=== PATIENT | male | born 1945 | race Caucasian/White ===

== ENCOUNTER 2017-04-27 11:00 | Inpatient (IN) | payer OTHER ==
[2017-04-27 11:08] VITALS: BMI 30.5
--- NOTE | 2017-04-27 11:24 | PDOC ---
History of Present Illness - General History Source: Patient Exam Limitations: No Limitations - History of Present Illness Initial Comments: CHIEF COMPLAINT: 71 y/o afebrile male with PMH HTN c/o SOB on exertion today. HISTORY OF PRESENT ILLNESS: The patient states he plays golf and walks 5 miles a day. Today, while playing golf, he developed SOB while walking to each hole. He states if he got a ride on the cart he was fine. He denies f/c, FERNANDEZ, dizziness, n/v/d, cough, hemoptysis, CP, palpitations, abd pain, back pain, hematuria, dysuria, history of GI bleed. PCP is Dr. Ramirez Vital signs on arrival are notable for pulse of 53. REVIEW OF SYSTEMS: GENERAL/CONSTITUTIONAL: No fever/chills. No weakness. No weight change. HEAD, EYES, EARS, NOSE AND THROAT: No change in vision. No ear pain or discharge. No sore throat. CARDIOVASCULAR: +SOB on exertion. No chest pain or palpitations. RESPIRATORY: No cough, wheezing, or hemoptysis. GASTROINTESTINAL: No abd pain, nausea, vomiting, diarrhea. GENITOURINARY: No dysuria, frequency, or change in urination. MUSCULOSKELETAL: No joint or muscle swelling or pain. No neck or back pain. SKIN: No rash or easy bruising. NEUROLOGIC: No headache, vertigo, loss of consciousness, or loss of sensation. PHYSICAL EXAM: GENERAL: The patient is awake, alert, and fully oriented, in no acute distress. He is very well appearing, in NAD or obvious discomfort. No cyanosis. No diaphoresis. HEAD: Normal with no signs of trauma. ENT: Pupils equal, round and reactive to light, extraocular movements intact, sclera anicteric, conjunctiva clear. Neck supple. LUNGS: Clear to auscultation bilaterally. Normal excursion. No respiratory distress or use of accessory muscles. CV: Rapid rate/irregular rhythm, S1/S2, no MRG. Cap refill < 2 sec. ABDOMEN: Soft, non-distended, non-tender even to deep palpation, no hepatomegaly or splenomegaly, no masses. EXTREMITIES: Normal range of motion, no edema. NEUROLOGICAL: Normal speech, normal gait. CN II-XII grossly intact. PSYCH: Normal mood, normal affect. SKIN: Warm, dry, normal turgor, no rashes or lesions noted. <Wohltman,Molly - Last Filed: 04/27/17 13:41> <Esther Castro - Last Filed: 04/30/17 13:07> - General Chief Complaint: Shortness of Breath Stated Complaint: SOB Time Seen by Provider: 04/27/17 11:17 Past History - Past Medical History Anemia: No Asthma: No Cancer: No Cardiac Disorders: No CVA: No COPD: No CHF: No Dementia: No Diabetes: No GI Disorders: No Disorders: No HTN: Yes Hypercholesterolemia: No Liver Disease: No Seizures: No Thyroid Disease: No - Surgical History Abdominal Surgery: Yes (RIGHT INGUINAL HERNIA) Appendectomy: Yes Cardiac Surgery: No Cholecystectomy: No Lung Surgery: No Neurologic Surgery: No Orthopedic Surgery: No - Psycho/Social/Smoking Cessation Hx Anxiety: No Suicidal Ideation: No Smoking History: Former smoker Have you smoked in the past 12 months: No If you are a former smoker, when did you quit?: 1969 Information on smoking cessation initiated: No Hx Alcohol Use: No Drug/Substance Use Hx: No Substance Use Type: Alcohol Hx Substance Use Treatment: No <Molly Key - Last Filed: 04/27/17 13:41> <Esther Castro - Last Filed: 04/30/17 13:07> - Past Medical History Allergies/Adverse Reactions: Allergies Allergy/AdvReac Type Severity Reaction Status Date / Time No Known Drug Allergies Allergy Verified 04/27/17 11:05 Home Medications: Ambulatory Orders Metoprolol Succinate [Toprol XL -] 100 mg PO DAILY 12/31/14 Triamterene/Hydrochlorothiazid [Triamterene-Hctz 75-50 mg Tab] 1 each PO DAILY 12/31/14 Multivitamins [Multivit ([facility] Form[facility])] 1 tab PO DAILY 01/15/15 *Physical Exam - Vital Signs Last Vital Signs Temp Pulse Resp BP Pulse Ox 98.0 F 53 L 18 146/73 100 04/27/17 11:05 04/27/17 11:05 04/27/17 11:05 04/27/17 11:05 04/27/17 11:05 <Molly Key - Last Filed: 04/27/17 13:41> - Vital Signs Last Vital Signs Temp Pulse Resp BP Pulse Ox 98.2 F 92 H 14 132/74 96 04/30/17 08:05 04/30/17 08:05 04/30/17 08:05 04/30/17 08:05 04/30/17 09:00 <Esther Castro - Last Filed: 04/30/17 13:07> Heart Score/ECG Review - ECG Intrepretation Comment:: Twelve-lead EKG was performed and reviewed by Dr. Castro. There is atrial flutter with variable AV block. The axis is normal. The intervals are normal. There are no ST or T wave abnormalities. Right bundle branch block. Impression: Abnormal twelve-lead EKG Prior EKG from 2015 showed normal sinus rhythm with right BBB. <Molly Key - Last Filed: 04/27/17 13:41> ED Treatment Course - LABORATORY CBC & Chemistry Diagram: 04/27/17 11:43 04/27/17 11:43 <Molly Key - Last Filed: 04/27/17 13:41> - LABORATORY CBC & Chemistry Diagram: 04/28/17 05:35 04/28/17 05:35 - ADDITIONAL ORDERS Additional order review: 04/27/17 11:43 RBC 5.16 MCV 92.3 MCHC 33.9 RDW 13.2 MPV 8.4 Neutrophils % 78.9 Lymphocytes % 14.2 D Monocytes % 6.2 Eosinophils % 0.1 Basophils % 0.6 - RADIOLOGY Radiology Studies Ordered: Category Date Time Status CHEST X-RAY PORTABLE* [RAD] Stat Radiology 04/27/17 11:26 Completed - Medications Given in the ED: ED Medications Discontinued Medications Generic Name Dose Route Start Last Admin Trade Name Freq PRN Reason Stop Dose Admin Diltiazem HCl 5 mg 04/27/17 11:33 04/27/17 12:10 Cardizem Injection - IVPUSH 04/27/17 11:34 5 mg ONCE ONE Administration Diltiazem HCl 5 mg 04/27/17 12:09 04/27/17 12:10 Cardizem Injection - IVPUSH 04/27/17 12:10 5 mg ONCE ONE Administration Diltiazem HCl 60 mg 04/27/17 12:09 04/27/17 12:16 Cardizem - PO 04/27/17 12:10 60 mg ONCE ONE Administration Diltiazem HCl 60 mg 04/27/17 20:15 04/27/17 20:19 Cardizem - PO 60 mg TID PAMELA Administration Diltiazem HCl 120 mg 04/28/17 10:00 04/28/17 09:34 Cardizem Cd - PO 120 mg DAILY PAMELA Administration Diltiazem HCl 120 mg 04/28/17 14:45 04/28/17 14:30 Cardizem Cd - PO 04/28/17 14:46 120 mg ONCE ONE Administration Diltiazem HCl 240 mg 04/29/17 10:00 04/29/17 09:42 Cardizem Cd - PO 240 mg DAILY PAMELA Administration Diltiazem HCl 60 mg 04/29/17 13:00 04/29/17 15:12 Cardizem - PO 04/29/17 13:01 60 mg ONCE ONE Administration Sodium Chloride 1,000 mls @ 75 mls/hr 04/27/17 11:45 04/28/17 14:52 Normal Saline - IV Not Given ASDIR PAMELA Sodium Chloride 250 mls @ 500 mls/hr 04/27/17 12:10 04/27/17 12:21 Normal Saline - IV 04/27/17 12:39 500 mls/hr ASDIR STA Administration Metoprolol Succinate 37.5 mg 04/28/17 06:00 04/28/17 06:40 Toprol Xl - PO 37.5 mg TID PAMELA Administration Metoprolol Succinate 50 mg 04/28/17 10:00 04/28/17 09:35 Toprol Xl - PO 50 mg DAILY PAMELA Administration Metoprolol Tartrate 2.5 mg 04/27/17 13:40 04/27/17 13:51 Lopressor Injection - IVPUSH 04/27/17 13:41 2.5 mg ONCE ONE Administration <Esther Castro - Last Filed: 04/30/17 13:07> Medical Decision Making - Medical Decision Making A/P: 71 y/o afebrile male with SOB on exertion this morning. Plan is as follows: 1. Labs 2. CXR 3. EKG EKG - new onset afib The patient's sees Dr. Becker. He is requesting to see him. Ordered 5mg IV cardizem. Chads 2 Score: 2 points Stroke risk was 2.2% per year in >90,000 patients (the [place] Atrial Fibrillation Cohort Study) and 2.9% risk of stroke/TIA/systemic embolism. One recommendation suggests a 0 score is low risk and may not require anticoagulation; a 1 score is low-moderate risk and should consider antiplatelet or anticoagulation, and score 2 or greater is moderate-high risk and should otherwise be an anticoagulation candidate. After 10 IV of cardizem the patient's heart rate dropped below 100 but shortly after went up into the 130s again. His blood pressure was 90/55 after the cardizem. Will give a bolus of NS and PO cardizem. CXR IMPRESSION: No acute pathology troponin mildly elevated. BNP elevated. Spoke with Dr. Ramirez who would like the patient admitted to Dr. Barahona. Spoke with Dr. Barahona and he accepts admission to Tele. Placed call to Dr. Becker and awaiting call back. Pt is aware of plan for admission. Spoke with Dr. Bhardwaj, manager oncology for Dr. Becker, and she suggests 2.5mg IV metoprolol. She will consult with the patient and states she will put in for an ECHO. She does not want an anticoagulant at this time. <Molly Key - Last Filed: 04/27/17 13:41> - Medical Decision Making 04/30/17 13:07 Pt seen by Midlevel Provider under my direct supervision Pt interviewed and examined Ancillary studies reviewed I agree with plan as outlined by Midlevel Provider <Esther Castro - Last Filed: 04/30/17 13:07> *DC/Admit/Observation/Transfer - Discharge Dispostion Admit: Yes <Molly Key - Last Filed: 04/27/17 13:41> <Esther Castro - Last Filed: 04/30/17 13:07> Diagnosis at time of Disposition: New onset a-fib, Shortness of breath on exertion - Referrals
[2017-04-27] MEDS ORDERED: dilTIAZem HCL 50 MG/10 ML - 10 ML VIAL IVPUSH ONE ×2 (11:33→12:09)
[2017-04-27 11:55] LABS: BASOPHIL 0.6 % (0-2.0); EOSINOPHIL 0.1 % (0-4.5); MCH 31.3 pg (25.7-33.7); MCHC 33.9 g/dl (32.0-35.9); MEAN CELL VOLUME 92.3 fl (80-96); MEAN PLT VOLUME 8.4 fl (7.5-11.1); NEUTROPHILS 78.9 % (42.8-82.8); PLATELET COUNT 184 K/MM3 (134-434); RDW 13.2 % (11.9-15.9); WHITE BLOOD COUNT 9.6 K/mm3 (4.0-10.0)
[2017-04-27] MEDS ORDERED: dilTIAZem HCL 60 MG TABLET (FP) PO ONE (12:09)
[2017-04-27] MEDS ORDERED: SODIUM CHLORIDE 250 ML IV STA (12:10)
[2017-04-27] MEDS ORDERED: dilTIAZem HCL 60 MG TABLET (FP) ONE (12:11)
[2017-04-27 12:19] LABS: ALBUMIN 4.2 g/dl (3.4-5.0); ANION GAP 8 (8-16); BILIRUBIN,TOTAL 1.5 mg/dL (0.2-1.0); CALCIUM 9.8 mg/dL (8.5-10.1); CO2 29 mmol/L (21-32); CREATININE 1.2 mg/dL (0.7-1.3); GLUCOSE,RANDOM 101 mg/dL (74-106); SGOT/AST 37 U/L (15-37); SGPT/ALT 38 U/L (12-78); TOT PROT 7.6 g/dl (6.4-8.2)
[2017-04-27] MEDS: SODIUM CHLORIDE 1,000 ML IV SCH (12:21)
[2017-04-27 12:22] LABS: ALK PHOS 89 U/L (45-117); TROPONIN I 0.07 ng/ml (0.00-0.05)
[2017-04-27 12:28] LABS: FREE T4 1.02 ng/dl (0.76-1.16); THYROID STIMULATING HORMONE 1.95 uIU/ml (0.358-3.74)
[2017-04-27 12:57] LABS: ACTIVATED PTT 36.6 SECONDS (26.9-34.4)
[2017-04-27] MEDS ORDERED: METOPROLOL TARTRATE 5 MG/5 ML VIAL IVPUSH ONE (13:40)
[2017-04-27] MEDS ORDERED: METOPROLOL TARTRATE 5 MG/5 ML VIAL ONE (13:44)
[2017-04-27] MEDS ORDERED: ACETAMINOPHEN 325 MG TABLET (FP) PO PRN (14:45)
--- NOTE | 2017-04-27 15:02 | HP ---
Admitting History and Physical - Primary Care Physician PCP: Vahe Ramirez - Admission Chief Complaint: I was short of breath History of Present Illness: Mr Romo is a very pleasant and healthy 71 year old male who comes in with shortness of breath. He says he was playing golf this morning and noticed that when he was walking he would get short of breath. It occurred when he walked, it would resolved when he rested. He never had this before. It did not improve so he came in. Aside from the shortness of breath he says he felt well. He denies fevers, chills, lightheadedness, dizziness, passing out, chest pain, fluttering, palpitations, nausea, vomiting, abdominal pain, diarrhea, constipation, difficulty or pain on urination, or swelling. He currently says he is feeling well. History Source: Patient Limitations to Obtaining History: No Limitations - Past Medical History Cardiovascular: Yes: HTN - Past Surgical History Past Surgical History: Yes: Appendectomy, Hernia Repair - Smoking History Smoking history: Former smoker Have you smoked in the past 12 months: No If you are a former smoker, when did you quit?: 1969 - Alcohol/Substance Use Hx Alcohol Use: No History of Substance Use: reports: None - Social History Usual Living Arrangement: Yes: With Spouse ADL: Independent History of Recent Travel: No Home Medications - Allergies Allergies/Adverse Reactions: Allergies Allergy/AdvReac Type Severity Reaction Status Date / Time No Known Drug Allergies Allergy Verified 04/27/17 11:05 - Home Medications Home Medications: Ambulatory Orders Metoprolol Succinate [Toprol XL -] 100 mg PO DAILY 12/31/14 Triamterene/Hydrochlorothiazid [Triamterene-Hctz 75-50 mg Tab] 1 each PO DAILY 12/31/14 Multivitamins [Multivit ([facility] Formul[facility])] 1 tab PO DAILY 01/15/15 Family Disease History - Family Disease History Family Disease History: Heart Disease: Father Review of Systems Findings/Remarks: Full review of systems obtained, as per HPI and otherwise Physical Examination Vital Signs: Vital Signs Temperature 98.0 F 04/27/17 11:05 Pulse Rate 127 H 04/27/17 13:52 Respiratory Rate 18 04/27/17 13:52 Blood Pressure 89/65 04/27/17 13:52 O2 Sat by Pulse Oximetry (%) 97 04/27/17 13:52 Constitutional: Yes: Well Nourished, No Distress, Calm Eyes: Yes: Conjunctiva Clear, EOM Intact, PERRL HENT: Yes: Atraumatic, Normocephalic Cardiovascular: Yes: Tachycardia, Pulse Irregular. No: Gallop, Murmur, Rub Respiratory: Yes: Regular, CTA Bilaterally. No: Rales, Rhonchi, Wheezes Gastrointestinal: Yes: Normal Bowel Sounds, Soft. No: Distention, Tenderness Extremities: Yes: WNL Edema: No Labs: Laboratory Results - last 24 hr 04/27/17 04/27/17 04/27/17 11:43 11:43 11:43 WBC 9.6 RBC 5.16 Hgb 16.1 Hct 47.6 MCV 92.3 MCHC 33.9 RDW 13.2 Plt Count 184 MPV 8.4 Neutrophils % 78.9 Lymphocytes % 14.2 D Monocytes % 6.2 Eosinophils % 0.1 Basophils % 0.6 INR PTT (Actin FS) Sodium 139 Potassium 4.0 Chloride 102 Carbon Dioxide 29 Anion Gap 8 BUN 19 H D Creatinine 1.2 Creat Clearance w eGFR 59.86 Random Glucose 101 Calcium 9.8 Total Bilirubin 1.5 H D AST 37 D ALT 38 D Alkaline Phosphatase 89 Creatine Kinase 230 Creatine Kinase Index 1.7 CK-MB (CK-2) 3.803 H CK-MB (CK-2) Rel Index Troponin I 0.07 H B-Natriuretic Peptide 1514.86 H Total Protein 7.6 Albumin 4.2 TSH 1.95 Free T4 1.02 04/27/17 04/27/17 04/27/17 11:43 11:43 14:35 WBC RBC Hgb Hct MCV MCHC RDW Plt Count MPV Neutrophils % Lymphocytes % Monocytes % Eosinophils % Basophils % INR 1.00 PTT (Actin FS) 36.6 H Sodium Potassium Chloride Carbon Dioxide Anion Gap BUN Creatinine Creat Clearance w eGFR Random Glucose Calcium Total Bilirubin AST ALT Alkaline Phosphatase Creatine Kinase 190 Creatine Kinase Index 1.9 CK-MB (CK-2) 3.563 CK-MB (CK-2) Rel Index Cancelled Troponin I 0.09 H B-Natriuretic Peptide Total Protein Albumin TSH Free T4 04/27/17 14:35 WBC RBC Hgb Hct MCV MCHC RDW Plt Count MPV Neutrophils % Lymphocytes % Monocytes % Eosinophils % Basophils % INR PTT (Actin FS) Sodium Potassium Chloride Carbon Dioxide Anion Gap BUN Creatinine Creat Clearance w eGFR Random Glucose Calcium Total Bilirubin AST ALT Alkaline Phosphatase Creatine Kinase Creatine Kinase Index CK-MB (CK-2) CK-MB (CK-2) Rel Index Cancelled Troponin I B-Natriuretic Peptide Total Protein Albumin TSH Free T4 Imaging - Results Chest X-ray: Report Reviewed, Image Reviewed EKG: Image Reviewed Problem List - Problems (1) New onset a-fib Assessment/Plan: -patient presents with new onset atrial fibrillation with rvr -case d/w cardiology and recommends anticoagulation -will start on eliquis 5mg bid since patient CHADS-Vasc 2 score is 2 -still tachycardic with hypotension, ? if would benefit from digoxin loading vs aaron blocking agent -defer to cardiology about medications -ECHO ordered -normal TFTs Code(s): I48.91 - UNSPECIFIED ATRIAL FIBRILLATION (2) HTN (hypertension) Assessment/Plan: -hypotensive secondary to tachycardia and medications -will hold home anti-hypertensives currently -monitor, may need to adjust regimen in light of treatment for atrial fibrillation Code(s): I10 - ESSENTIAL (PRIMARY) HYPERTENSION
[2017-04-27 15:17] LABS: TROPONIN I 0.09 ng/ml (0.00-0.05)
--- NOTE | 2017-04-27 16:17 | CON.CARD ---
Cardiology Consult (text) - Consultation Consultation Note: CC: new onset aflutter 71 y/o with PMH HTN, diet controlled HL, RBBB p/w new onset flutter. HISTORY OF PRESENT ILLNESS: The patient states he plays golf on weekdays and has played golf outdoors for the past 3 days (endorses drinking water in the heat). Yesterday felt fine. Today began having sob while walking to the point that after the 12th hole, caught a ride back to the parking lot b/c he didn't think he could make the walk. States he had recently cut down on his etoh intake, but yesterday went back to his usual amount: large martini and ~ 1/2 bottle of wine. No other symptoms. no orthopnea, pnd, cp, le edema, palps, dizziness, claudication, transient neurologic sx's, bleeding. No recent illness, f/c/s, n/v/d, cough, congestion, visual disturbances, rash, h /a. In ER he has had some dizziness here when his bp dropped after initial IV dilt dose, no recurrence. no palps. has walked to the bathroom without sob. Heart rate still RVR up to the 130's. s/p IV dilt 5 x 2 and metoprolol 2.5 IV x 1 with minimal improvement in HR and recurrent drops in bp to the 80's. Also s/p po dilt 60 mg. PMHx/PSHx: per hpi right inguinal hernia repair fam hx: no cardiomyopathy/afib social hx: former smoker (only 6 pack year hx), etoh as above. ros: per hpi Ambulatory Orders Metoprolol Succinate [Toprol XL -] 100 mg PO DAILY 12/31/14 Triamterene/Hydrochlorothiazid [Triamterene-Hctz 75-50 mg Tab] 1 each PO DAILY 12/31/14 Multivitamins [Multivit ([facility] Formul[facility])] 1 tab PO DAILY 01/15/15 Current Medications Acetaminophen (Tylenol -) 650 mg PO Q4H PRN PRN Reason: FEVER OR PAIN Apixaban (Eliquis -) 5 mg PO BID PAMELA Sodium Chloride (Normal Saline -) 1,000 mls @ 75 mls/hr IV ASDIR PAMELA Last Admin: 04/27/17 12:21 Dose: 75 mls/hr Multivitamins/Minerals/Vitamin C (Tab-A-Vit -) 1 tab PO DAILY PAMELA Pantoprazole Sodium (Protonix -) 40 mg PO DAILY PAMELA Vital Signs - 24 hr 04/27/17 04/27/17 04/27/17 11:05 11:56 12:24 Temperature 98.0 F Pulse Rate 53 L Pulse Rate [ 137 H Apical] Respiratory 18 24 Rate Blood Pressure 146/73 Blood Pressure 95/50 [Right Arm] O2 Sat by Pulse 100 98 96 Oximetry (%) 04/27/17 13:52 Temperature Pulse Rate Pulse Rate [ 127 H Apical] Respiratory 18 Rate Blood Pressure Blood Pressure 89/65 [Right Arm] O2 Sat by Pulse 97 Oximetry (%) Intake & Output 04/25/17 04/26/17 04/27/17 04/28/17 07:59 07:59 07:59 07:59 Weight 219 lb NAD, calm JVD flat, neck supple ctab, nl effort tachycardic, irregular, nl s1, s2 no mrg + bs soft nt nd ext without e/c/c + dp/pt no carotid bruits aaox3 no jaundice, diaphoresis CBC, BMP 04/27/17 11:43 04/27/17 11:43 Laboratory Tests 04/27/17 04/27/17 04/27/17 11:43 11:43 14:35 Total Bilirubin 1.5 H D AST 37 D ALT 38 D Alkaline Phosphatase 89 Creatine Kinase 230 190 Creatine Kinase Index 1.7 1.9 CK-MB (CK-2) 3.803 H 3.563 Troponin I 0.07 H 0.09 H B-Natriuretic Peptide 1514.86 H TSH 1.95 EKG: aflutter with RVR, variable block, intermittent aberrant conduction. RBBB. no ischemic changes. tele: aflutter rates up to 100's-130's CXR: clear echo 03/2017: Nl LV. RV not well seen, Mild RVE, Mildly decreased RV fn. 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 rvsp 30-40. mild ao dilation 71 y/o with PMH HTN, diet controlled HL, RBBB p/w new onset flutter. new onset aflutter - currently asx despite frequent HR's up to 130's. Dropping pressures with IV AV aaron blockade. Since he is asx, would not continue IV AV aaron blockade. s/ p PO dilt. Playing golf in heat for the past 3 days. Con't IVF and monitor for improvement in HR with IVF and dilt alone. Patient on toprol 100 at home -- > resume this evening 37.5 TID (in short acting form for ease of titration if needed) If bp continues to be problematic can consider digoxin. - [id number] 2. Merits AC. No anemia or bleeding risk, will start eliquis tonight. - tele - echo with preserved EF, but RV dil/mildly dec fn (also mentions RV not well seen - ?accuracy). However, patient also with RBBB, consider adrienne screen as outpatient and/or further interrogation of mitral valve for functional mitral stenosis given severe MAC. - orthostatic vitals in am. HTN - bb as above. Will hold outpatient triamterene/HCTZ while on IVF HL - recent LDL this month at office was 100, diet controlled rBBB - as above etoh - counseled on cessation.
[2017-04-27] MEDS ORDERED: dilTIAZem HCL 60 MG TABLET (FP) PO SCH (20:15)
[2017-04-27] MEDS: APIXABAN 5 MG TABLET PO SCH (22:04)
[2017-04-28] MEDS ORDERED: METOPROLOL SUCCINATE 25 MG TAB.SR.24H (FP) PO SCH (06:00)
[2017-04-28 07:47] LABS: BASOPHIL 0.4 % (0-2.0); EOSINOPHIL 0.9 % (0-4.5); MCH 31.5 pg (25.7-33.7); MCHC 33.9 g/dl (32.0-35.9); MEAN PLT VOLUME 8.7 fl (7.5-11.1); NEUTROPHILS 69.9 % (42.8-82.8); PLATELET COUNT 186 K/MM3 (134-434); RDW 13.4 % (11.9-15.9); WHITE BLOOD COUNT 8.7 K/mm3 (4.0-10.0)
[2017-04-28 08:18] LABS: ALBUMIN 3.9 g/dl (3.4-5.0); ANION GAP 11 (8-16); CALCIUM 8.9 mg/dL (8.5-10.1); CO2 27 mmol/L (21-32); GLUCOSE,RANDOM 111 mg/dL (74-106); MAGNESIUM 2.2 mg/dL (1.8-2.4)
[2017-04-28 08:21] LABS: ALK PHOS 80 U/L (45-117); BILIRUBIN,TOTAL 1.5 mg/dL (0.2-1.0); CREATININE 1.1 mg/dL (0.7-1.3); PHOSPHOROUS 2.4 mg/dL (2.5-4.9); SGOT/AST 25 U/L (15-37); SGPT/ALT 32 U/L (12-78); TOT PROT 7.1 g/dl (6.4-8.2)
--- NOTE | 2017-04-28 08:41 | PN ---
Progress Note, Physician Chief Complaint: aflutter, sob History of Present Illness: no sob at rest or walking to/from bathroom no palpitations, dizzy, cp - Current Medication List Current Medications: Active Medications Acetaminophen (Tylenol -) 650 mg PO Q4H PRN PRN Reason: FEVER OR PAIN Apixaban (Eliquis -) 5 mg PO BID [facility] Last Admin: 04/27/17 22:04 Dose: 5 mg Sodium Chloride (Normal Saline -) 1,000 mls @ 75 mls/hr IV ASDIR [facility] Last Admin: 04/27/17 12:21 Dose: 75 mls/hr Metoprolol Succinate (Toprol Xl -) 37.5 mg PO TID [facility] Last Admin: 04/28/17 06:40 Dose: 37.5 mg Multivitamins/Minerals/Vitamin C (Tab-A-Vit -) 1 tab PO DAILY [facility] Pantoprazole Sodium (Protonix -) 40 mg PO DAILY [facility] - Objective Vital Signs: Vital Signs Temperature 98 F 04/28/17 02:00 Pulse Rate 90 04/28/17 06:00 Respiratory Rate 20 04/28/17 06:00 Blood Pressure 119/89 04/28/17 06:00 O2 Sat by Pulse Oximetry (%) 96 04/27/17 19:00 Constitutional: Yes: Well Nourished, No Distress, Calm Cardiovascular: Yes: Pulse Irregular, S1, S2. No: JVD, Gallop, Murmur Respiratory: Yes: Regular, CTA Bilaterally. No: Accessory Muscle Use, Rales, Wheezes Extremities: No: Cold Edema: No Neurological: Yes: Alert, Oriented Psychiatric: No: Agitated Labs: CBC, BMP 04/28/17 05:35 04/28/17 05:35 INR, PTT INR 1.00 (0.82-1.09) 04/27/17 11:43 - ....Imaging EKG: Other (tele: AFL 140s-->better overnight-->130s this am) Assessment/Plan EKG: aflutter with RVR, variable block, intermittent aberrant conduction. RBBB. no ischemic changes. tele: aflutter rates up to 100's-130's CXR: clear Echo 03/2017: Nl LV. RV not well seen--mild RVE, mildly decreased RV fn. 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 rvsp 30-40. mild ao dilation new onset aflutter - HR rapid to 130s despite toprol 100mg qd at home--i.e. BB not adequately rate controlling him - transient hypotension in ER with IV doses of dilt and lopressor - will add standing dilitazem to help with AF rate control, decr BB dose to avoid hypotension, defer digoxin - start diltiazem CD 120mg this am, with metopr 50mg--assess HRs with ambulation later--incr dilt if needed (if BP allows) - [id number] 2--cont eliquis - used to drink moderately, but rarely has more than 1 or max 2 drinks per day now; had 3-4 drinks the night before AFL episode--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 - no suspected L/R CHF here, no JVD - BNP 1500 - ? artifactual due to AF rhythm with variable R-R interval lengths - ? RVSP underestimated on echo (incomplete TR envelope?) - adrienne screen as outpatient - serial echo for RV size/fxn and RVSP as outpt, defer pulm HTN workup unless signif elev pressure is documented - defer lasix--observe for sob with ambulation once HRs controlled HTN - AVN blockers for AF as disc'd - hold outpatient triamterene/HCTZ to avoid hypotension
[2017-04-28] MEDS: PANTOPRAZOLE 40 MG TABLET (FP) PO SCH (09:34)
[2017-04-28] MEDS: APIXABAN 5 MG TABLET PO SCH ×2 (09:34→21:34)
[2017-04-28] MEDS: MULTIVITAMINS (DAILY MVI) TABLET (FP) PO SCH (09:34)
[2017-04-28] MEDS ORDERED: METOPROLOL SUCCINATE 50 MG TAB.SR.24H (FP) PO SCH (10:00)
[2017-04-28] MEDS: SODIUM CHLORIDE 1,000 ML IV SCH (14:52)
--- NOTE | 2017-04-28 15:59 | PN ---
Progress Note (short form) - Note Progress Note: No SOB Palpitations are less O/E Heart irregular Lungs clear Abd osft Ext no edema Vital Signs Period Temp Pulse Resp BP Sys/[place] Pulse Ox Last 24 Hr 97.1 F-98.6 F 74-143 16-20 93-119/50-89 96-99 Current Medications Acetaminophen (Tylenol -) 650 mg PO Q4H PRN PRN Reason: FEVER OR PAIN Apixaban (Eliquis -) 5 mg PO BID [facility] Last Admin: 04/28/17 09:34 Dose: 5 mg Diltiazem HCl (Cardizem Cd -) 240 mg PO DAILY [facility] Sodium Chloride (Normal Saline -) 1,000 mls @ 75 mls/hr IV ASDIR [facility] Last Admin: 04/28/17 14:52 Dose: Not Given Multivitamins/Minerals/Vitamin C (Tab-A-Vit -) 1 tab PO DAILY [facility] Last Admin: 04/28/17 09:34 Dose: 1 tab Pantoprazole Sodium (Protonix -) 40 mg PO DAILY [facility] Last Admin: 04/28/17 09:34 Dose: 40 mg (1) New onset a-fib Assessment/Plan: Heart rate is improving Cont present care and control rate better exspecialy with exertion Possible discharge tomorrow if stable Code(s): I48.91 - UNSPECIFIED ATRIAL FIBRILLATION (2) HTN (hypertension) Assessment/Plan: Controlled, cont present care Code(s): I10 - ESSENTIAL (PRIMARY) HYPERTENSION
--- NOTE | 2017-04-29 08:01 | PN ---
Progress Note, Physician Chief Complaint: AFL History of Present Illness: no sob including walking halls mult times no palpitations, dizzy, cp - Current Medication List Current Medications: Active Medications Acetaminophen (Tylenol -) 650 mg PO Q4H PRN PRN Reason: FEVER OR PAIN Apixaban (Eliquis -) 5 mg PO BID [facility] Last Admin: 04/28/17 21:34 Dose: 5 mg Diltiazem HCl (Cardizem Cd -) 240 mg PO DAILY [facility] Multivitamins/Minerals/Vitamin C (Tab-A-Vit -) 1 tab PO DAILY [facility] Last Admin: 04/28/17 09:34 Dose: 1 tab Pantoprazole Sodium (Protonix -) 40 mg PO DAILY [facility] Last Admin: 04/28/17 09:34 Dose: 40 mg - Objective Vital Signs: Vital Signs Temperature 97.8 F 04/29/17 02:00 Pulse Rate 96 H 04/29/17 06:00 Respiratory Rate 18 04/29/17 06:00 Blood Pressure 132/94 04/29/17 06:00 O2 Sat by Pulse Oximetry (%) 99 04/28/17 22:00 Constitutional: Yes: Well Nourished, No Distress, Calm Cardiovascular: Yes: Regular Rate and Rhythm, S1, S2. No: Gallop, Murmur Respiratory: Yes: Regular, CTA Bilaterally. No: Accessory Muscle Use, Rales, Wheezes Extremities: No: Cold Edema: No Neurological: Yes: Alert, Oriented Psychiatric: No: Agitated Labs: CBC, BMP 04/28/17 05:35 04/28/17 05:35 INR, PTT INR 1.00 (0.82-1.09) 04/27/17 11:43 - ....Imaging EKG: Other (AFL, to 140s often) Assessment/Plan EKG: aflutter with RVR, variable block, intermittent aberrant conduction. RBBB. no ischemic changes. tele: aflutter rates up to 100's-130's CXR: clear Echo 03/2017: Nl LV. RV not well seen--mild RVE, mildly decreased RV fn. 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 rvsp 30-40. mild ao dilation new onset aflutter - HR rapid to 130s despite toprol 100mg qd at home--i.e. BB not adequately rate controlling him - transient hypotension in ER with IV doses of dilt and lopressor - will add standing dilitazem to help with AF rate control, decr BB dose to avoid hypotension, defer digoxin - 04/28: start diltiazem CD 120mg this am, with metopr 50mg--assess HRs with ambulation later--incr dilt if needed (if BP allows) -04/29: yest HR to 140 when ambulating--diltiazem incr'd to 240qd and toprol stopped. 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 - no suspected L/R CHF here, no JVD - BNP 1500 - ? artifactual due to AF rhythm with variable R-R interval lengths - ? RVSP underestimated on echo (incomplete TR envelope?) - adrienne screen as outpatient - serial echo for RV size/fxn and RVSP as outpt, defer pulm HTN workup unless signif elev pressure is documented - defer lasix--observe for sob with ambulation once HRs controlled HTN - AVN blockers for AF as disc'd - hold outpatient triamterene/HCTZ to avoid hypotension
[2017-04-29] MEDS: MULTIVITAMINS (DAILY MVI) TABLET (FP) PO SCH (09:42)
[2017-04-29] MEDS: APIXABAN 5 MG TABLET PO SCH ×2 (09:42→22:24)
[2017-04-29] MEDS: PANTOPRAZOLE 40 MG TABLET (FP) PO SCH (09:42)
[2017-04-29] MEDS ORDERED: dilTIAZem HCL 60 MG TABLET (FP) PO ONE (13:00)
--- NOTE | 2017-04-29 13:01 | PN ---
Progress Note (short form) - Note Progress Note: No chest pain palpitations or SOB O/E Vital Signs Period Temp Pulse Resp BP Sys/[place] Pulse Ox Last 24 Hr 97.8 F-98.4 F 72-132 18-20 108-132/58-94 99 Current Medications Acetaminophen (Tylenol -) 650 mg PO Q4H PRN PRN Reason: FEVER OR PAIN Apixaban (Eliquis -) 5 mg PO BID [facility] Last Admin: 04/29/17 09:42 Dose: 5 mg Diltiazem HCl (Cardizem Cd -) 300 mg PO DAILY [facility] Diltiazem HCl (Cardizem -) 60 mg PO ONCE ONE Stop: 04/29/17 13:01 Metoprolol Succinate (Toprol Xl -) 50 mg PO DAILY [facility] Multivitamins/Minerals/Vitamin C (Tab-A-Vit -) 1 tab PO DAILY [facility] Last Admin: 04/29/17 09:42 Dose: 1 tab Pantoprazole Sodium (Protonix -) 40 mg PO DAILY [facility] Last Admin: 04/29/17 09:42 Dose: 40 mg (1) New onset a-fib Assessment/Plan: Heart rate is improving but was above 130 with exercise Metoprolol added and Cardizem increased Cont present care and control rate better exspecialy with exertion Could be discharged when Ok with Cardiology Code(s): I48.91 - UNSPECIFIED ATRIAL FIBRILLATION (2) HTN (hypertension) Assessment/Plan: Controlled, cont present care Code(s): I10 - ESSENTIAL (PRIMARY) HYPERTENSION
[2017-04-29] MEDS: METOPROLOL SUCCINATE 50 MG TAB.SR.24H (FP) PO SCH (13:52)
--- NOTE | 2017-04-30 08:38 | PN ---
Progress Note, Physician Chief Complaint: AFL History of Present Illness: no palpitations, sob, cp, dizzy - Current Medication List Current Medications: Active Medications Acetaminophen (Tylenol -) 650 mg PO Q4H PRN PRN Reason: FEVER OR PAIN Apixaban (Eliquis -) 5 mg PO BID [facility] Last Admin: 04/29/17 22:24 Dose: 5 mg Diltiazem HCl (Cardizem Cd -) 300 mg PO DAILY [facility] Metoprolol Succinate (Toprol Xl -) 50 mg PO DAILY [facility] Last Admin: 04/29/17 13:52 Dose: 50 mg Multivitamins/Minerals/Vitamin C (Tab-A-Vit -) 1 tab PO DAILY [facility] Last Admin: 04/29/17 09:42 Dose: 1 tab Pantoprazole Sodium (Protonix -) 40 mg PO DAILY [facility] Last Admin: 04/29/17 09:42 Dose: 40 mg - Objective Vital Signs: Vital Signs Temperature 98 F 04/30/17 06:00 Pulse Rate 86 04/30/17 06:00 Respiratory Rate 20 04/30/17 06:00 Blood Pressure 114/71 04/30/17 06:00 O2 Sat by Pulse Oximetry (%) 99 04/29/17 20:51 Constitutional: Yes: Well Nourished, No Distress, Calm Cardiovascular: Yes: Pulse Irregular, S1, S2. No: Gallop, Murmur Respiratory: Yes: Regular, CTA Bilaterally. No: Accessory Muscle Use, Rales, Wheezes Extremities: No: Cold Edema: No Neurological: Yes: Alert, Oriented Psychiatric: No: Agitated Labs: CBC, BMP 04/28/17 05:35 04/28/17 05:35 INR, PTT INR 1.00 (0.82-1.09) 04/27/17 11:43 - ....Imaging EKG: Other (tele: AFL rarely still to 130s) Assessment/Plan EKG: aflutter with RVR, variable block, intermittent aberrant conduction. RBBB. no ischemic changes. tele: aflutter rates up to 100's-130's CXR: clear Echo 03/2017: Nl LV. RV not well seen--mild RVE, mildly decreased RV fn. 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 rvsp 30-40. mild ao dilation new onset aflutter - HR rapid to 130s despite toprol 100mg qd at home--i.e. BB not adequately rate controlling him - transient hypotension in ER with IV doses of dilt and lopressor - will add standing dilitazem to help with AF rate control, decr BB dose to avoid hypotension, defer digoxin - 04/28: HR to 140 when ambulating--diltiazem incr'd to 240qd and toprol stopped -04/29: remains with HRs to 130s-140s with activity, diltiazem incr'd to 300mg qd , metopr 50 added -04/30: BP tolerating AVN randal regimen thus far -for INGRID-guided DC cardioversion today -will likely decr med doses once in sinus rhythm - [id number] 2--cont eliquis - used to drink moderately, but rarely has more than 1 or max 2 drinks per day now; had 3-4 drinks the night before AFL episode--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 - no suspected L/R CHF here, no JVD - BNP 1500 - ? artifactual due to AF rhythm with variable R-R interval lengths - ? RVSP underestimated on echo (incomplete TR envelope?) - adrienne screen as outpatient - serial echo for RV size/fxn and RVSP as outpt, defer pulm HTN workup unless signif elev pressure is documented - defer lasix--observe for sob with ambulation once HRs controlled HTN - AVN blockers for AF as disc'd - hold outpatient triamterene/HCTZ to avoid hypotension
[2017-04-30] MEDS ORDERED: PT OWN MED DRAWER 7, Y5N ONE (09:31)
[2017-04-30] MEDS: MULTIVITAMINS (DAILY MVI) TABLET (FP) PO SCH (09:39)
[2017-04-30] MEDS: PANTOPRAZOLE 40 MG TABLET (FP) PO SCH (09:39)
[2017-04-30] MEDS: METOPROLOL SUCCINATE 50 MG TAB.SR.24H (FP) PO SCH (09:39)
--- NOTE | 2017-04-30 10:46 | EKG ---
Test Reason : Blood Pressure : / mmHG Vent. Rate : 140 BPM Atrial Rate : 267 BPM P-R Int : 000 ms QRS Dur : 154 ms QT Int : 330 ms P-R-T Axes : 264 -25 -05 degrees QTc Int : 503 ms ATRIAL FLUTTER WITH VARIABLE A-V BLOCK WITH PREMATURE VENTRICULAR OR ABERRANTLY CONDUCTED COMPLEXES RIGHT BUNDLE BRANCH BLOCK ABNORMAL ECG WHEN COMPARED WITH ECG OF 15-JAN-2015 13:20, ATRIAL FLUTTER HAS REPLACED SINUS RHYTHM VENT. RATE HAS INCREASED BY 60 BPM T WAVE VARIATION Confirmed by CHRIS AMANDA MD ([id number]) on 04/30/2017 10:45:47 AM Referred By: Confirmed By:CHRIS AMANDA MD
[2017-04-30] MEDS: APIXABAN 5 MG TABLET PO SCH ×2 (11:03→21:23)
[2017-04-30] MEDS ORDERED: LIDOCAINE VISCOUS 2% ORAL/TOP 20 ML UNIT-DOSE CUP MM ONE (16:01)
--- NOTE | 2017-04-30 16:52 | DS ---
Physical Examination Vital Signs: Vital Signs Temperature 98.2 F 04/30/17 16:40 Pulse Rate 61 04/30/17 16:40 Respiratory Rate 12 04/30/17 16:40 Blood Pressure 91/62 04/30/17 16:40 O2 Sat by Pulse Oximetry (%) 100 04/30/17 16:40 Constitutional: Yes: Well Nourished, No Distress, Calm Cardiovascular: Yes: Bradycardia. No: Gallop, Murmur, Rub Respiratory: Yes: Regular, CTA Bilaterally. No: Rales, Rhonchi, Wheezes Gastrointestinal: Yes: Normal Bowel Sounds, Soft. No: Distention, Tenderness Extremities: Yes: WNL Edema: No Labs: CBC, BMP 04/28/17 05:35 04/28/17 05:35 Discharge Summary Reason For Visit: SOB ON EXERTION,NEW ONSET A FIB Current Active Problems HTN (hypertension) (Acute) New onset a-fib (Acute) Shortness of breath on exertion (Acute) Hospital Course: (1) New onset a-fib Code(s): I48.91 - UNSPECIFIED ATRIAL FIBRILLATION (2) HTN (hypertension) Code(s): I10 - ESSENTIAL (PRIMARY) HYPERTENSION Mr Romo is a very pleasant 71 year old male who comes in with afib with rvr. He was admitted to the hospital and seen by cardiology. Rate control was attempted with diltiazem and metoprolol, however it was unsuccessful. He underwent INGRID/DCCV and was successfully cardioverted. Currently he is stable for discharge home. Case d/w cardiology, discharging on diltiazem. 34 minutes spent in preparation of this discharge Condition: Good - Instructions Diet, Activity, Other Instructions: resume previous diet and activity Referrals: Vahe Ramirez MD [Staff Physician] - John Becker MD [Staff Physician] - Disposition: HOME - Home Medications Comprehensive Discharge Medication List: Ambulatory Orders Triamterene/Hydrochlorothiazid [Triamterene-Hctz 75-50 mg Tab] 1 each PO DAILY 12/31/14 Multivitamins [Multivit ([facility] Formulary)] 1 tab PO DAILY 01/15/15 Apixaban [Eliquis -] 5 mg PO BID #60 tablet 04/30/17 Diltiazem Cd [Cardizem Cd -] 180 mg PO DAILY #30 cap.cd.24h 04/30/17
--- NOTE | 2017-04-30 17:26 | PROC ---
Cardioversion Indication: Atrial flutter Risks and Benefits Explained: Yes Consent on Chart: Yes INGRID done prior to Cardioversion: Yes INGRID findings: Prominent pectinate muscle, no thrombus Patient anticoagulated: Yes (sammie) - Procedure Anesthesiologist present: Yes Medication given: propofol sedation Joules delivered: 120 J Rhythm post cardioversion: sinus bradycardia Remarks: Successful conversion of atrial flutter with variable block to sinus bradycardia , HR 50's. No complications.
[2017-05-01 07:40] LABS: BASOPHIL 0.6 % (0-2.0); EOSINOPHIL 0.8 % (0-4.5); MCH 31.7 pg (25.7-33.7); MEAN PLT VOLUME 8.3 fl (7.5-11.1); NEUTROPHILS 73.2 % (42.8-82.8); PLATELET COUNT 159 K/MM3 (134-434); RDW 13.3 % (11.9-15.9); WHITE BLOOD COUNT 6.8 K/mm3 (4.0-10.0)
[2017-05-01 08:24] LABS: ANION GAP 10 (8-16); CALCIUM 8.9 mg/dL (8.5-10.1); CO2 27 mmol/L (21-32); GLUCOSE,RANDOM 100 mg/dL (74-106); SGOT/AST 36 U/L (15-37); SGPT/ALT 43 U/L (12-78)
[2017-05-01 08:26] LABS: ALK PHOS 86 U/L (45-117); BILIRUBIN,TOTAL 1.4 mg/dL (0.2-1.0); TOT PROT 7.3 g/dl (6.4-8.2)
[2017-05-01] MEDS ORDERED: PT OWN MED DRAWER 7, Y5N ONE (08:49)
[2017-05-01 08:56] VITALS: BP 106/66; PULSE 82; TEMP 98.2
--- NOTE | 2017-05-01 10:03 | PN ---
Progress Note, Physician Chief Complaint: AFL History of Present Illness: no palpitations, sob, cp, palpit - Current Medication List Current Medications: Active Medications Acetaminophen (Tylenol -) 650 mg PO Q4H PRN PRN Reason: FEVER OR PAIN Apixaban (Eliquis -) 5 mg PO BID [facility] Last Admin: 04/30/17 21:23 Dose: 5 mg Metoprolol Succinate (Toprol Xl -) 50 mg PO DAILY [facility] Last Admin: 04/30/17 09:39 Dose: 50 mg Multivitamins/Minerals/Vitamin C (Tab-A-Vit -) 1 tab PO DAILY [facility] Last Admin: 04/30/17 09:39 Dose: 1 tab Pantoprazole Sodium (Protonix -) 40 mg PO DAILY [facility] Last Admin: 04/30/17 09:39 Dose: 40 mg - Objective Vital Signs: Vital Signs Temperature 98.2 F 05/01/17 08:05 Pulse Rate 82 05/01/17 08:05 Respiratory Rate 14 05/01/17 08:05 Blood Pressure 106/66 05/01/17 08:05 O2 Sat by Pulse Oximetry (%) 100 04/30/17 21:00 Constitutional: Yes: Well Nourished, No Distress, Calm Cardiovascular: Yes: Regular Rate and Rhythm, S1, S2. No: Gallop, Murmur Respiratory: Yes: Regular, CTA Bilaterally. No: Accessory Muscle Use, Rales, Wheezes Extremities: No: Cold Edema: No Neurological: Yes: Alert, Oriented Psychiatric: No: Agitated Labs: CBC, BMP 05/01/17 05:48 05/01/17 05:48 INR, PTT INR 1.00 (0.82-1.09) 04/27/17 11:43 - ....Imaging EKG: Other (tele: NSR 80s; PVCs) Assessment/Plan EKG: aflutter with RVR, variable block, intermittent aberrant conduction. RBBB. no ischemic changes. tele: aflutter rates up to 100's-130's CXR: clear Echo 03/2017: Nl LV. RV not well seen--mild RVE, mildly decreased RV fn. 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 rvsp 30-40. mild ao dilation new onset aflutter - HR rapid to 130s despite toprol 100mg qd at home--i.e. BB not adequately rate controlling him - transient hypotension in ER with IV doses of dilt and lopressor - will add standing dilitazem to help with AF rate control, decr BB dose to avoid hypotension, defer digoxin - 04/28: HR to 140 when ambulating--diltiazem incr'd to 240qd and toprol stopped -04/29: remains with HRs to 130s-140s with activity, diltiazem incr'd to 300mg qd , metopr 50 added -04/30: BP tolerating AVN randal regimen thus far -05/01: s/p successful INGRID-guided DC cardioversion yesterday. remains in sinus rhythm, HR 80s. 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 - no suspected L/R CHF here, no JVD - BNP 1500 - ? artifactual due to AF rhythm with variable R-R interval lengths - ? RVSP underestimated on echo (incomplete TR envelope?) - adrienne screen as outpatient - serial echo for RV size/fxn and RVSP as outpt, defer pulm HTN workup unless signif elev pressure is documented - defer lasix--observe for sob with ambulation once HRs controlled HTN - AVN blockers for AF as disc'd - stopped his prior triamterene/HCTZ to avoid hypotension - bp f/u as outpatient in 2 wks
[2017-05-01] MEDS: PANTOPRAZOLE 40 MG TABLET (FP) PO SCH (10:18)
[2017-05-01] MEDS: METOPROLOL SUCCINATE 50 MG TAB.SR.24H (FP) PO SCH (10:18)
[2017-05-01] MEDS: MULTIVITAMINS (DAILY MVI) TABLET (FP) PO SCH (10:18)
[2017-05-01] MEDS: APIXABAN 5 MG TABLET PO SCH (10:18)
--- NOTE | 2017-05-01 10:28 | PN ---
Progress Note, Physician History of Present Illness: Feeling OK, discharge held up due to insurance coverage with anticoagulant. No shortness of breath, remains in NSR. - Current Medication List Current Medications: Active Medications Acetaminophen (Tylenol -) 650 mg PO Q4H PRN PRN Reason: FEVER OR PAIN Apixaban (Eliquis -) 5 mg PO BID [facility] Last Admin: 05/01/17 10:18 Dose: 5 mg Diltiazem HCl (Cardizem Cd -) 180 mg PO DAILY [facility] Last Admin: 05/01/17 10:18 Dose: 180 mg Metoprolol Succinate (Toprol Xl -) 50 mg PO DAILY [facility] Last Admin: 05/01/17 10:18 Dose: 50 mg Multivitamins/Minerals/Vitamin C (Tab-A-Vit -) 1 tab PO DAILY [facility] Last Admin: 05/01/17 10:18 Dose: 1 tab Pantoprazole Sodium (Protonix -) 40 mg PO DAILY [facility] Last Admin: 05/01/17 10:18 Dose: 40 mg - Objective Vital Signs: Vital Signs Temperature 98.2 F 05/01/17 08:05 Pulse Rate 82 05/01/17 08:05 Respiratory Rate 14 05/01/17 08:05 Blood Pressure 106/66 05/01/17 08:05 O2 Sat by Pulse Oximetry (%) 100 04/30/17 21:00 Constitutional: Yes: No Distress, Calm Neck: Yes: Supple, Trachea Midline Cardiovascular: Yes: Regular Rate and Rhythm, S1, S2. No: Murmur Respiratory: Yes: Regular, CTA Bilaterally. No: Rales, Rhonchi, Wheezes Gastrointestinal: Yes: Normal Bowel Sounds, Soft. No: Distention, Tenderness Edema: No Neurological: Yes: Alert, Oriented Labs: CBC, BMP 05/01/17 05:48 05/01/17 05:48 INR, PTT INR 1.00 (0.82-1.09) 04/27/17 11:43 Assessment/Plan Current Active Problems HTN (hypertension) (Acute) New onset a-fib (Acute) Shortness of breath on exertion (Acute) -discharge home on Eliquis, Cardizem and Toprol -to f/u in office later this week.
--- NOTE | 2017-05-01 14:30 | EKG ---
Test Reason : Blood Pressure : / mmHG Vent. Rate : 078 BPM Atrial Rate : 063 BPM P-R Int : 178 ms QRS Dur : 152 ms QT Int : 474 ms P-R-T Axes : 115 197 169 degrees QTc Int : 540 ms LEAD REVERSAL IN LIMB LEADS SINUS RHYTHM WITH INTRA ATRIAL CONDUCTION ABNORMALITY SINGLE PREMATURE VENTRICULAR COMPLEXES RIGHT BUNDLE BRANCH BLOCK ABNORMAL ECG WHEN COMPARED WITH ECG OF 27-APR-2017 11:23, RHYTHM CHANGE ABOVE VENT. RATE HAS DECREASED BY 62 BPM REPEAT TRACING Confirmed by ZEUS GIBSON MD ([id number]) on 05/01/2017 2:30:12 PM Referred By: Confirmed By:ZEUS GIBSON MD
== END 2017-05-01 12:05 | disposition home or self-care (01) | DRG 310 ==
LOC: JER 11:00 → JERBED 13:11 → J4W 18:02
PROVIDERS: ADMIT Internal Medicine; ATTEND Internal Medicine
PROC: B246ZZ4 Ultrasonography of Right and Left Heart, Transesophageal (ICD-10-PCS; 2017-04-30)
PROC: 5A2204Z Restoration of Cardiac Rhythm, Single (ICD-10-PCS; principal; 2017-04-30 14:00)
DX: I48.91 Unspecified atrial fibrillation (principal); I48.92 Unspecified atrial flutter; I10 Essential (primary) hypertension; Z87.891 Personal history of nicotine dependence; I45.10 Unspecified right bundle-branch block; F10.10 Alcohol abuse, uncomplicated; I42.8 Other cardiomyopathies; I95.2 Hypotension due to drugs
CPT/HCPCS: 36415; 71010-TC; 80053; 82550; 82553; 83735; 83880; 84100; 84439; 84443; 84481; 84484; 85025; 85610; 85730; 93005; 93010; 93306-TC; 93312; 93325; 99285-25

== ENCOUNTER 2018-05-17 13:18 | Inpatient (IN) | payer OTHER ==
--- NOTE | 2018-05-17 14:01 | PDOC ---
History of Present Illness - General Chief Complaint: Irregular Heart Beat Stated Complaint: A-FIB,SOB Time Seen by Provider: 05/17/18 13:45 - History of Present Illness Initial Comments: 05/17/18 13:53 72 yo M with h/o HTN, and A-fib Eliquiswho p/w SOB, and palpitations. Patient reports transient episode of palpitations, racing heart, SOB, and lightheadedness, lasting for 30-40 seconds while golfing at approximately 0900 AM. Resolved spontaneously. Similar symptoms one year ago at that time diagnosed with A-fib. No identifiable triggers or alleviators. Patient denies N/V, F,C, CP, SOB, urinary complaints, abdominal pain, diarrhea, constipation, lightheadedness, weakness, sensory changes. PMHx: as noted above. Denies h/o ACS/DE, stents, CABG. Denies h/o PE/DVT. ROS: as noted SHx: Allergies: NKDA Past History - Past Medical History Allergies/Adverse Reactions: Allergies Allergy/AdvReac Type Severity Reaction Status Date / Time No Known Drug Allergies Allergy Verified 05/17/18 13:38 Home Medications: Ambulatory Orders RX: Multivitamins [Multivit ([facility] Formulary)] 1 tab PO DAILY 01/15/15 RX: Apixaban [Eliquis -] 5 mg PO BID #60 tablet 04/30/17 RX: Diltiazem Cd [Cardizem Cd -] 180 mg PO DAILY #30 tab 05/01/17 RX: Metoprolol Succinate [Toprol XL -] 50 mg PO DAILY #30 tab 05/01/17 Cholecalciferol (Vitamin D3) [Vitamin D3] 1,000 unit PO DAILY 05/17/18 Anemia: No Asthma: No Cancer: No Cardiac Disorders: No CVA: No COPD: No CHF: No Dementia: No Diabetes: No GI Disorders: No Disorders: No HTN: Yes Hypercholesterolemia: No Liver Disease: No Seizures: No Thyroid Disease: No - Surgical History Abdominal Surgery: Yes (RIGHT INGUINAL HERNIA) Appendectomy: Yes Cardiac Surgery: No Cholecystectomy: No Lung Surgery: No Neurologic Surgery: No Orthopedic Surgery: No - Immunization History Immunization Up to Date: Yes - Suicide/Smoking/Psychosocial Hx Smoking History: Never smoked Have you smoked in the past 12 months: No If you are a former smoker, when did you quit?: 1970 Information on smoking cessation initiated: No Hx Alcohol Use: Yes (DAILY) Drug/Substance Use Hx: No Substance Use Type: None Hx Substance Use Treatment: No Review of Systems - Review of Systems Comments:: 05/17/18 14:14 GENERAL/CONSTITUTIONAL: No fever or chills. No weakness. HEAD, EYES, EARS, NOSE AND THROAT: No change in vision. No ear pain or discharge. No sore throat. CARDIOVASCULAR: No chest pain or shortness of breath RESPIRATORY: No cough, wheezing, or hemoptysis. GASTROINTESTINAL: No nausea, vomiting, diarrhea or constipation. GENITOURINARY: No dysuria, frequency, or change in urination. MUSCULOSKELETAL: No joint or muscle swelling or pain. No neck or back pain. SKIN: No rash NEUROLOGIC: No headache, vertigo, loss of consciousness, or change in strength/ sensation. ENDOCRINE: No increased thirst. No abnormal weight change HEMATOLOGIC/LYMPHATIC: No anemia, easy bleeding, or history of blood clots. ALLERGIC/IMMUNOLOGIC: No hives or skin allergy. *Physical Exam - Vital Signs Last Vital Signs Temp Pulse Resp BP Pulse Ox 98.3 F 128 H 20 136/78 98 05/17/18 13:38 05/17/18 13:38 05/17/18 13:38 05/17/18 13:38 05/17/18 13:38 - Physical Exam Comments: 05/17/18 14:15 GENERAL: Awake, alert, and fully oriented, in no acute distress HEAD: No signs of trauma, normocephalic, atraumatic EYES: PERRLA, EOMI, sclera anicteric, conjunctiva clear ENT: Hearing grossly normal, nares patent, oropharynx clear without exudates. Moist mucosa NECK: Normal ROM, supple, no lymphadenopathy, JVD, or masses LUNGS: No distress, speaks full sentences, clear to auscultation bilaterally HEART: Irregular rate and rhythm, normal S1 and S2, no murmurs, rubs or gallops , peripheral pulses normal and equal bilaterally. ABDOMEN: Soft, nontender, normoactive bowel sounds. No guarding, no rebound. No masses EXTREMITIES : Normal inspection, Normal range of motion, no edema. No clubbing or cyanosis. SKIN: Warm, Dry, normal turgor, no rashes or lesions noted ED Treatment Course - LABORATORY CBC & Chemistry Diagram: 05/17/18 13:59 05/17/18 13:59 Medical Decision Making - Medical Decision Making 05/17/18 14:12 72 yo M with h/o HTN, and A-fib Eliquiswho p/w SOB, and palpitations. HR 138, BP 136/78, AF. Irregular rate rhythm on physical exam. ACS/DE r/o. Will evaluate for A-fib. PERC + PE based on age. Low risk PE Wells criteria. R/o PNA. Patient without clinical s/s fluid/volume overload. Low suspicion CHF exacc. ED Course: CBC, CMP, Card Pr. BNP, Mg EKG, CXR Diltiazem 10 mg 05/17/18 14:16 EKG: A-flutter with PVC. Nml axis, + RBBB. Vent rate 131. QT 308/454. Trop: 0.13 BNP: 1532 CKI: 1.6 05/17/18 16:20 Patient persistently tachycardic 120's Diltiazem 20 mg HR improved 80's Patient admitted to [facility]. *DC/Admit/Observation/Transfer Diagnosis at time of Disposition: Atrial fib/flutter, transient - Discharge Dispostion Decision to Admit order: Yes - Referrals Referrals: Vahe Ramirez MD [Primary Care Provider] - - Patient Instructions - Post Discharge Activity
--- NOTE | 2018-05-17 14:05 | PDOC ---
Attending Attestation - Resident Resident Name: MikoJayceCasimiro - ED Attending Attestation I have performed the following: I have examined & evaluated the patient, The case was reviewed & discussed with the resident, I agree w/resident's findings & plan, Exceptions are as noted - HPI HPI: 05/17/18 14:02 72 year old male with history of HTN, atrial fibrillation p/w SOB and palpitations. Approximately 9 am this morning while golfing, felt transient episodes of palpitations, racing heart, and lightheadedness. Lasted for approximately 1 min ago. Last episode about 1 year ago, which he was diagnosed with afib. Currently adherent to his medications including diltiazem, anticoagulants eliquis. No fevers, chills, and no other complaints. Denies chest pain. No prior hx of MIs or stents or PEs. - Physicial Exam PE: 05/17/18 14:05 GENERAL: Awake, alert, and fully oriented, in no acute distress HEAD: No signs of trauma EYES: EOMI, sclera anicteric, conjunctiva clear ENT: Auricles normal inspection, hearing grossly normal, nares patent NECK: Normal ROM, supple LUNGS: Breath sounds equal, clear to auscultation bilaterally. No wheezes, and no crackles HEART: Irregularly irregular, normal S1 and S2, no murmurs, rubs or gallops ABDOMEN: Soft, nontender,. No guarding, no rebound. No masses EXTREMITIES: Normal range of motion, no edema. No clubbing or cyanosis. No cords, erythema, or tenderness NEUROLOGICAL: Cranial nerves II through XII grossly intact. Normal speech, normal gait SKIN: Warm, Dry, normal turgor, no rashes or lesions noted. - Medical Decision Making 05/17/18 14:04 Vital Signs Temp Pulse Resp BP Pulse Ox 98.3 F 128 H 20 136/78 98 05/17/18 13:38 05/17/18 13:38 05/17/18 13:38 05/17/18 13:38 05/17/18 13:38 Pt likely SOB 2/2 afib/flutter RVR. Will attempt to rate control. Cardiac telemetry and labs. Chest xray to evaluate for SOB. Troponin to r/o DE. Admit. 05/17/18 16:18 CBC, BMP 05/17/18 13:59 05/17/18 13:59 CMP Sodium 143 mmol/L (136-145) 05/17/18 13:59 Potassium 4.4 mmol/L (3.5-5.1) 05/17/18 13:59 Chloride 109 mmol/L (98-107) H 05/17/18 13:59 Carbon Dioxide 26 mmol/L (21-32) 05/17/18 13:59 Anion Gap 8 (8-16) 05/17/18 13:59 BUN 17 mg/dL (7-18) 05/17/18 13:59 Creatinine 1.1 mg/dL (0.7-1.3) 05/17/18 13:59 Creat Clearance w eGFR > 60 (>60) 05/17/18 13:59 Random Glucose 93 mg/dL (74-106) 05/17/18 13:59 Calcium 8.8 mg/dL (8.5-10.1) 05/17/18 13:59 Phosphorus 2.9 mg/dL (2.5-4.9) D 05/17/18 13:59 Magnesium 2.4 mg/dL (1.8-2.4) 05/17/18 13:59 Total Bilirubin 1.2 mg/dL (0.2-1.0) H 05/17/18 13:59 AST 19 U/L (15-37) D 05/17/18 13:59 ALT 30 U/L (12-78) D 05/17/18 13:59 Alkaline Phosphatase 97 U/L (45-117) 05/17/18 13:59 Creatine Kinase 234 IU/L (39-308) 05/17/18 13:59 Creatine Kinase Index 1.6 % (0.0-5.0) 05/17/18 13:59 CK-MB (CK-2) 3.93 ng/mL (0.5-3.6) H 05/17/18 13:59 Troponin I 0.13 ng/ml (0.00-0.05) H D 05/17/18 13:59 B-Natriuretic Peptide 1532.39 pg/ml (5-125) H 05/17/18 13:59 Total Protein 7.2 g/dl (6.4-8.2) 05/17/18 13:59 Albumin 4.1 g/dl (3.4-5.0) 05/17/18 13:59 TSH 1.99 uIU/ml (0.358-3.74) D 05/17/18 13:59 Pt given diltiazem with improvement in HR. Will admit Heart Score/ECG Review #1 ECG reviewed & interpreted by me at: 13:45 05/17/18 14:07 atrial fib RVR 131 RBBB, no std/marina, QTC 454 msec
[2018-05-17] MEDS ORDERED: dilTIAZem HCL 30 MG TABLET (FP) PO ONE (14:09)
[2018-05-17] MEDS ORDERED: SODIUM CHLORIDE IVPB SCH (14:15)
[2018-05-17] MEDS ORDERED: DILTIAZEM IVPB SCH (14:15)
[2018-05-17] MEDS ORDERED: dilTIAZem HCL 30 MG TABLET (FP) ONE (14:26)
[2018-05-17] MEDS ORDERED: dilTIAZem HCL 50 MG/10 ML - 10 ML VIAL IVPUSH ONE ×2 (14:26→15:27)
[2018-05-17] MEDS ORDERED: dilTIAZem HCL 125 MG/25 ML - 25 ML VIAL ONE ×2 (14:26→15:36)
[2018-05-17 14:43] LABS: BASO % 0.4 % (0-2.0); EOS % 0.3 % (0-4.5); HEMATOCRIT 44.1 % (35.4-49); LYMPH % 14.2 % (8-40); MCH 31.7 pg (25.7-33.7); MCHC 33.9 g/dl (32.0-35.9); MEAN CELL VOLUME 93.4 fl (80-96); MEAN PLT VOLUME 8.5 fl (7.5-11.1); MONO % 5.4 % (3.8-10.2); NEUT % 79.7 % (42.8-82.8); PLATELET COUNT 208 K/MM3 (134-434); RBC 4.73 M/mm3 (4.00-5.60); RDW 13.7 % (11.9-15.9); WHITE BLOOD COUNT 8.6 K/mm3 (4.0-10.0)
[2018-05-17 14:56] LABS: INR 1.25 (0.82-1.09); PROTHROMBIN TIME (PATIENT) 14.1 SEC (9.7-13.0)
[2018-05-17 14:58] LABS: ACTIVATED PTT 35.3 SECONDS (25.2-36.5)
[2018-05-17 15:16] LABS: CHLORIDE 109 mmol/L (98-107); POTASSIUM 4.4 mmol/L (3.5-5.1); SODIUM 143 mmol/L (136-145)
[2018-05-17 15:27] LABS: ALBUMIN 4.1 g/dl (3.4-5.0); ANION GAP 8 (8-16); BLOOD UREA NITROGEN 17 mg/dL (7-18); CALCIUM 8.8 mg/dL (8.5-10.1); CO2 26 mmol/L (21-32); GLUCOSE,RANDOM 93 mg/dL (74-106); MAGNESIUM 2.4 mg/dL (1.8-2.4)
[2018-05-17 15:30] LABS: BILIRUBIN,TOTAL 1.2 mg/dL (0.2-1.0); CREATININE 1.1 mg/dL (0.7-1.3); PHOSPHOROUS 2.9 mg/dL (2.5-4.9); SGOT/AST 19 U/L (15-37); SGPT/ALT 30 U/L (12-78); TOT PROT 7.2 g/dl (6.4-8.2)
[2018-05-17 15:34] LABS: ALK PHOS 97 U/L (45-117); N-TERMINAL BNP 1532.39 pg/ml (5-125)
[2018-05-17] MEDS ORDERED: ACETAMINOPHEN 325 MG TABLET (FP) PO PRN (16:19)
--- NOTE | 2018-05-17 16:27 | HP ---
Admitting History and Physical - Primary Care Physician PCP: Vahe Ramirez - Admission Chief Complaint: I was short of breath History of Present Illness: Mr Romo is a very pleasant 72 year old male who comes in with palpitations and shortness of breath. He says he has been doing well and saw Dr Ramirez on Sunday where everything was normal. He played golf yesterday without issue, however while playing golf today he felt palpitations. With the palpitations he also had shortness of breath and lightheadedness. He sat down and expected it to resolve but it did not. Because of that he came in. He denies passing out, fevers, chills, chest pain or pressure, wheezing, coughing, abdominal pain, nausea, vomiting, diarrhea, constipation, difficulty or pain on urination, or swelling. He received IV and oral diltiazem. His heart rate is currently better controlled but raises up to low 100s during exam. He is without complaint upon seeing. History Source: Patient Limitations to Obtaining History: No Limitations - Past Medical History Cardiovascular: Yes: AFIB, HTN - Past Surgical History Past Surgical History: Yes: Appendectomy, Hernia Repair - Smoking History Smoking history: Never smoked Have you smoked in the past 12 months: No If you are a former smoker, when did you quit?: 1970 - Alcohol/Substance Use Hx Alcohol Use: Yes (DAILY) History of Substance Use: reports: None - Social History Usual Living Arrangement: Yes: With Spouse ADL: Independent History of Recent Travel: No Home Medications - Allergies Allergies/Adverse Reactions: Allergies Allergy/AdvReac Type Severity Reaction Status Date / Time No Known Drug Allergies Allergy Verified 05/17/18 13:38 - Home Medications Home Medications: Ambulatory Orders Multivitamins [Multivit ([facility] Formul[facility])] 1 tab PO DAILY 01/15/15 Apixaban [Eliquis -] 5 mg PO BID #60 tablet 04/30/17 Diltiazem Cd [Cardizem Cd -] 180 mg PO DAILY #30 tab 05/01/17 Metoprolol Succinate [Toprol XL -] 50 mg PO DAILY #30 tab 05/01/17 Cholecalciferol (Vitamin D3) [Vitamin D3] 1,000 unit PO DAILY 05/17/18 Family Disease History - Family Disease History Family Disease History: Heart Disease: Father Review of Systems Findings/Remarks: Full review of systems obtained, as per HPI and otherwise negative Physical Examination Vital Signs: Vital Signs Temperature 36.8 C 05/17/18 13:38 Pulse Rate 114 H 05/17/18 14:40 Respiratory Rate 18 05/17/18 14:40 Blood Pressure 113/89 05/17/18 14:40 O2 Sat by Pulse Oximetry (%) 98 05/17/18 14:40 Constitutional: Yes: Well Nourished, No Distress, Calm Eyes: Yes: Conjunctiva Clear, EOM Intact, PERRL Cardiovascular: Yes: Pulse Irregular. No: Tachycardia, Gallop, Murmur, Rub Respiratory: Yes: Regular, CTA Bilaterally. No: Rales, Rhonchi, Wheezes Gastrointestinal: Yes: Normal Bowel Sounds, Soft. No: Distention, Tenderness Extremities: Yes: WNL Edema: No Labs: CBC, BMP 05/17/18 13:59 05/17/18 13:59 Imaging - Results Chest X-ray: Image Reviewed EKG: Image Reviewed Problem List - Problems (1) Atrial fibrillation with RVR Assessment/Plan: -patient with history of atrial fibrillation -last admission 1 year ago, unable to cardiovert -on diltiazem and toprol xl -on eliquis -received IV and oral diltiazem in the ED -better controlled upon seeing -will continue toprol xl -will increase diltiazem -cardiology consult -check TSH and free T4 Code(s): I48.91 - UNSPECIFIED ATRIAL FIBRILLATION (2) HTN (hypertension) Assessment/Plan: -well controlled -as above Code(s): I10 - ESSENTIAL (PRIMARY) HYPERTENSION
--- NOTE | 2018-05-17 16:48 | CON.CARD ---
Consult Consult Specialty:: Cardiology Referred by:: Jun Reason for Consultation:: afib - History of Present Illness Chief Complaint: palpitations, shortness of breath History of Present Illness: 72M history of afib presenting with palpitations, shortness of breath. He has been playing golf regularly this week but today had palpitations and shortness of breath when playing golf, came on suddenly. also had lightheadedness. no chest pain, edema, nausea, diaphoresis. HR on presentation 130s, in ER was given IV diltiazem and oral diltiazem, home dose of diltiazem was increased as well. He sees Dr. Becker in clinic, has been uptitrating dose of meds. Last episode was a year ago, had a cardioversion with conversion to sinus. Last seen by Dr. Becker 03/2018, per notes was in sinus rhythm and asymptmoatic at the time. Feels better now with improved HR. - History Source History Provided By: Patient Limitations to Obtaining History: No Limitations - Past Medical History Cardio/Vascular: Yes: AFIB, HTN - Past Surgical History Past Surgical History: Yes: Appendectomy, Hernia Repair - Alcohol/Substance Use Hx Alcohol Use: Yes (DAILY) History of Substance Use: reports: None - Smoking History Smoking history: Never smoked Have you smoked in the past 12 months: No If you are a former smoker, when did you quit?: 1970 - Social History ADL: Independent History of Recent Travel: No Home Medications - Allergies Allergies/Adverse Reactions: Allergies Allergy/AdvReac Type Severity Reaction Status Date / Time No Known Drug Allergies Allergy Verified 05/17/18 13:38 - Home Medications Home Medications: Ambulatory Orders Multivitamins [Multivit ([facility] Formulary)] 1 tab PO DAILY 01/15/15 Apixaban [Eliquis -] 5 mg PO BID #60 tablet 04/30/17 Diltiazem Cd [Cardizem Cd -] 180 mg PO DAILY #30 tab 05/01/17 Metoprolol Succinate [Toprol XL -] 50 mg PO DAILY #30 tab 05/01/17 Cholecalciferol (Vitamin D3) [Vitamin D3] 1,000 unit PO DAILY 05/17/18 Family Disease History - Family Disease History Family Disease History: Heart Disease: Father Review of Systems - Review of Systems Constitutional: reports: No Symptoms Eyes: reports: No Symptoms HENT: reports: No Symptoms Neck: reports: No Symptoms Cardiovascular: reports: Palpitations, Shortness of Breath Respiratory: reports: No Symptoms Gastrointestinal: reports: No Symptoms Musculoskeletal: reports: No Symptoms Integumentary: reports: No Symptoms Neurological: reports: No Symptoms Endocrine: reports: No Symptoms Vital Signs: Vital Signs Temperature 98.3 F 05/17/18 13:38 Pulse Rate 114 H 05/17/18 14:40 Respiratory Rate 18 05/17/18 14:40 Blood Pressure 113/89 05/17/18 14:40 O2 Sat by Pulse Oximetry (%) 98 05/17/18 14:40 Constitutional: Yes: Well Nourished, No Distress Eyes: Yes: Conjunctiva Clear, EOM Intact HENT: Yes: Atraumatic, Normocephalic Neck: Yes: Supple Respiratory: Yes: Regular, CTA Bilaterally Gastrointestinal: Yes: Normal Bowel Sounds, Soft Cardiovascular: Yes: Pulse Irregular Heart Sounds: Yes: S1, S2 Musculoskeletal: Yes: WNL Edema: No Psychiatric: Yes: Alert, Oriented - Other Data Labs, Other Data: CBC, BMP 05/17/18 13:59 05/17/18 13:59 INR, PTT INR 1.25 (0.82-1.09) H 05/17/18 13:59 Troponin, BNP 05/17/18 13:59 Troponin I 0.13 H D B-Natriuretic Peptide 1532.39 H Troponin, BNP 05/17/18 13:59 Troponin I 0.13 H D B-Natriuretic Peptide 1532.39 H Tele atrial fibrillation 80s-100s with PVCs Echo 03/2018: tds, nl LV function, LA severely dilated, interatrial septal aneurysm, mild MR, ao root 4.0 cm CMR 06/14 nl LV/RV size, not c/w ARVD, mildly decreased EF 47%, + apical noncompaction, + linear subepicardial myocardial enhancement 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
[2018-05-17] MEDS: APIXABAN 5 MG TABLET PO SCH (21:19)
[2018-05-18 00:32] VITALS: BMI 32.7
[2018-05-18 07:55] LABS: BASO % 0.2 % (0-2.0); EOS % 1.5 % (0-4.5); HEMATOCRIT 41.8 % (35.4-49); HEMOGLOBIN 14.2 GM/dL (11.7-16.9); LYMPH % 18.5 % (8-40); MCH 32.2 pg (25.7-33.7); MEAN CELL VOLUME 94.7 fl (80-96); MEAN PLT VOLUME 8.6 fl (7.5-11.1); MONO % 5.9 % (3.8-10.2); NEUT % 73.9 % (42.8-82.8); PLATELET COUNT 171 K/MM3 (134-434); RBC 4.41 M/mm3 (4.00-5.60); RDW 13.4 % (11.9-15.9); WHITE BLOOD COUNT 7.7 K/mm3 (4.0-10.0)
[2018-05-18] MEDS: MULTIVITAMINS (DAILY MVI) TABLET (FP) PO SCH ×2 (08:11→09:19)
[2018-05-18] MEDS: APIXABAN 5 MG TABLET PO SCH ×3 (08:11→21:10)
[2018-05-18] MEDS: CHOLECALCIFEROL (VITAMIN D3) 1,000 UNIT TABLET (FP) PO SCH ×2 (08:11→09:19)
[2018-05-18 09:11] LABS: CALCIUM 8.7 mg/dL (8.5-10.1)
[2018-05-18 09:20] LABS: ANION GAP 7 (8-16); BLOOD UREA NITROGEN 14 mg/dL (7-18); CHLORIDE 107 mmol/L (98-107); CO2 28 mmol/L (21-32); CREATININE 1.1 mg/dL (0.7-1.3); GLUCOSE,RANDOM 90 mg/dL (74-106); MAGNESIUM 2.5 mg/dL (1.8-2.4); POTASSIUM 4.5 mmol/L (3.5-5.1); SODIUM 142 mmol/L (136-145)
--- NOTE | 2018-05-18 10:10 | EKG ---
Test Reason : Blood Pressure : / mmHG Vent. Rate : 131 BPM Atrial Rate : 267 BPM P-R Int : 000 ms QRS Dur : 146 ms QT Int : 308 ms P-R-T Axes : 059 -12 -12 degrees QTc Int : 454 ms ATRIAL FLUTTER WITH VARIABLE A-V BLOCK WITH PREMATURE VENTRICULAR OR ABERRANTLY CONDUCTED COMPLEXES RIGHT BUNDLE BRANCH BLOCK ABNORMAL ECG WHEN COMPARED WITH ECG OF 30-APR-2017 17:06, ATRIAL FLUTTER HAS REPLACED SINUS RHYTHM VENT. RATE HAS INCREASED BY 53 BPM QRS AXIS SHIFTED RIGHT NONSPECIFIC T WAVE ABNORMALITY NOW EVIDENT IN ANTERIOR LEADS T WAVE INVERSION NO LONGER EVIDENT IN LATERAL LEADS Confirmed by BRONSON MYERS, JASON ([id number]) on 05/18/2018 10:10:13 AM Referred By: Confirmed By:JSAON DOBSON MD
--- NOTE | 2018-05-18 10:36 | PN ---
Progress Note, Physician Chief Complaint: No C/O Palpitation, SOB or chest pain History of Present Illness: 72 year old male H/o HTN Afib s/p Cardioversion and EP study (as per patient no abalation was performed) admitted with palpitations and shortness of breath in the setting of Afib with RVR now rate controlled on AC , mild troponin leak probably due to demand Ischemia in the setting of RVR - Current Medication List Current Medications: Active Medications Acetaminophen (Tylenol -) 650 mg PO Q4H PRN PRN Reason: PAIN LEVEL 1-5 Apixaban (Eliquis -) 5 mg PO BID [facility] Last Admin: 05/18/18 09:19 Dose: Not Given Cholecalciferol (Vitamin D3 -) 1,000 unit PO DAILY [facility] Last Admin: 05/18/18 09:19 Dose: Not Given Diltiazem HCl (Cardizem Cd -) 240 mg PO DAILY [facility] Last Admin: 05/18/18 09:19 Dose: Not Given Metoprolol Succinate (Toprol Xl -) 50 mg PO DAILY [facility] Last Admin: 05/18/18 09:19 Dose: Not Given Multivitamins/Minerals/Vitamin C (Tab-A-Vit -) 1 tab PO DAILY [facility] Last Admin: 05/18/18 09:19 Dose: Not Given - Objective Vital Signs: Vital Signs Temperature 98.4 F 05/18/18 05:30 Pulse Rate 76 05/18/18 05:30 Respiratory Rate 20 05/18/18 05:30 Blood Pressure 96/67 05/18/18 05:30 O2 Sat by Pulse Oximetry (%) 97 05/17/18 21:00 Constitutional: Yes: Well Nourished, No Distress Eyes: Yes: Conjunctiva Clear, EOM Intact HENT: Yes: Atraumatic, Normocephalic Neck: Yes: Supple, Trachea Midline. No: Decreased ROM, Lymphadenopathy Cardiovascular: Yes: Pulse Irregular, S1, S2. No: Murmur Respiratory: Yes: Regular, CTA Bilaterally Gastrointestinal: Yes: Normal Bowel Sounds, Soft Extremities: Yes: WNL. 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 Code(s): I48.91 - UNSPECIFIED ATRIAL FIBRILLATION (2) HTN (hypertension) Assessment/Plan: Well controlled Cont current meds Code(s): I10 - ESSENTIAL (PRIMARY) HYPERTENSION (3) Elevated troponin I level Assessment/Plan: No Chest pian most likely demand ischemia Code(s): R74.8 - ABNORMAL LEVELS OF OTHER SERUM ENZYMES
[2018-05-18] MEDS ORDERED: FUROSEMIDE 40 MG/4 ML INJECTABLE VIAL IVPUSH ONE (12:08)
--- NOTE | 2018-05-18 12:08 | PN ---
Progress Note, Physician History of Present Illness: Patient seen with his at bedside Cear onset of AF yesterday at 4PM while playing golf Feels slightly improved now but has been sitting in bed No dyspnea Tele: With Atrial flutter 120-140s - Current Medication List Current Medications: Active Medications Acetaminophen (Tylenol -) 650 mg PO Q4H PRN PRN Reason: PAIN LEVEL 1-5 Apixaban (Eliquis -) 5 mg PO BID [facility] Last Admin: 05/18/18 09:19 Dose: Not Given Cholecalciferol (Vitamin D3 -) 1,000 unit PO DAILY [facility] Last Admin: 05/18/18 09:19 Dose: Not Given Diltiazem HCl (Cardizem Cd -) 240 mg PO DAILY [facility] Last Admin: 05/18/18 09:19 Dose: Not Given Metoprolol Succinate (Toprol Xl -) 50 mg PO DAILY [facility] Last Admin: 05/18/18 09:19 Dose: Not Given Multivitamins/Minerals/Vitamin C (Tab-A-Vit -) 1 tab PO DAILY [facility] Last Admin: 05/18/18 09:19 Dose: Not Given - Objective Vital Signs: Vital Signs Temperature 98.4 F 05/18/18 05:30 Pulse Rate 76 05/18/18 05:30 Respiratory Rate 20 05/18/18 05:30 Blood Pressure 96/67 05/18/18 05:30 O2 Sat by Pulse Oximetry (%) 97 05/17/18 21:00 Constitutional: Yes: No Distress, Calm Eyes: Yes: WNL HENT: Yes: WNL Neck: Yes: WNL Cardiovascular: Yes: Regular Rate and Rhythm, Tachycardia Respiratory: Yes: CTA Bilaterally (Bibasilar crackles) Gastrointestinal: Yes: Normal Bowel Sounds Extremities: Yes: WNL Edema: No Labs: CBC, BMP 05/18/18 05:59 05/18/18 05:59 INR, PTT INR 1.25 (0.82-1.09) H 05/17/18 13:59 Assessment/Plan 72M h/o paroxysmal afib p/w afib with RVR Afib/Flutter - Initial ECG appears more like Aflutter - Currently on Cardizem 240 and metoprolol 50 - Has h/o DCCV 1 year ago -Would proceed with INGRID guided DCCV on Sunday fro Aflutter -Continue Eliquis elevated troponin, BNP - may be in setting of afib with RVR, denies chest pain Elevated BNP -CXR OK but with bibasilar crackles -Will give lasix today
[2018-05-19] MEDS: CHOLECALCIFEROL (VITAMIN D3) 1,000 UNIT TABLET (FP) PO SCH (09:04)
[2018-05-19] MEDS: APIXABAN 5 MG TABLET PO SCH ×2 (09:04→21:05)
[2018-05-19] MEDS: MULTIVITAMINS (DAILY MVI) TABLET (FP) PO SCH (09:04)
--- NOTE | 2018-05-19 10:56 | PN ---
Progress Note, Physician History of Present Illness: [place] improved after IV lasix yesterday, good UOP This AM feels worse, palpitatations like his presentation Tele: Aflutter to 130s - Current Medication List Current Medications: Active Medications Acetaminophen (Tylenol -) 650 mg PO Q4H PRN PRN Reason: PAIN LEVEL 1-5 Apixaban (Eliquis -) 5 mg PO BID [facility] Last Admin: 05/19/18 09:04 Dose: 5 mg Cholecalciferol (Vitamin D3 -) 1,000 unit PO DAILY [facility] Last Admin: 05/19/18 09:04 Dose: 1,000 unit Diltiazem HCl (Cardizem Cd -) 240 mg PO DAILY [facility] Last Admin: 05/19/18 09:05 Dose: Not Given Metoprolol Succinate (Toprol Xl -) 50 mg PO DAILY [facility] Last Admin: 05/19/18 09:04 Dose: 50 mg Multivitamins/Minerals/Vitamin C (Tab-A-Vit -) 1 tab PO DAILY [facility] Last Admin: 05/19/18 09:04 Dose: 1 tab - Objective Vital Signs: Vital Signs Temperature 98.3 F 05/19/18 05:54 Pulse Rate 126 H 05/19/18 05:54 Respiratory Rate 20 05/19/18 05:54 Blood Pressure 122/88 05/19/18 05:54 O2 Sat by Pulse Oximetry (%) 98 05/18/18 20:46 Constitutional: Yes: No Distress Eyes: Yes: WNL HENT: Yes: WNL Neck: Yes: WNL Cardiovascular: Yes: Regular Rate and Rhythm, Tachycardia Respiratory: Yes: CTA Bilaterally Gastrointestinal: Yes: Normal Bowel Sounds Musculoskeletal: Yes: WNL Extremities: Yes: WNL Edema: No Labs: CBC, BMP 05/18/18 05:59 05/18/18 05:59 INR, PTT INR 1.25 (0.82-1.09) H 05/17/18 13:59 Assessment/Plan 72M h/o paroxysmal afib p/w afib with RVR Afib/Flutter - Initial ECG appears more like Aflutter - Currently on Cardizem 240 and metoprolol 50 - Has h/o DCCV 1 year ago -Would proceed with INGRID guided DCCV on Sunday for Aflutter. Consent obtained and in Chart. -Continue Eliquis -NPO after midnight tonight elevated troponin, BNP - may be in setting of afib with RVR, denies chest pain
--- NOTE | 2018-05-19 13:48 | PN ---
Progress Note, Physician Chief Complaint: C/O Palpitation in am EKG shows VR 133 no c/o , SOB or chest pain History of Present Illness: 72 year old male H/o HTN Afib s/p Cardioversion and EP study (as per patient no abalation was performed) admitted with palpitations and shortness of breath in the setting of Afib with RVR now rate controlled on AC , mild troponin leak probably due to demand Ischemia in the setting of RVR - Current Medication List Current Medications: Active Medications Acetaminophen (Tylenol -) 650 mg PO Q4H PRN PRN Reason: PAIN LEVEL 1-5 Apixaban (Eliquis -) 5 mg PO BID [facility] Last Admin: 05/19/18 09:04 Dose: 5 mg Cholecalciferol (Vitamin D3 -) 1,000 unit PO DAILY [facility] Last Admin: 05/19/18 09:04 Dose: 1,000 unit Diltiazem HCl (Cardizem Cd -) 240 mg PO DAILY [facility] Last Admin: 05/19/18 09:05 Dose: Not Given Metoprolol Succinate (Toprol Xl -) 50 mg PO DAILY [facility] Last Admin: 05/19/18 09:04 Dose: 50 mg Multivitamins/Minerals/Vitamin C (Tab-A-Vit -) 1 tab PO DAILY [facility] Last Admin: 05/19/18 09:04 Dose: 1 tab - Objective Vital Signs: Vital Signs Temperature 97.8 F 05/19/18 10:00 Pulse Rate 119 H 05/19/18 10:00 Respiratory Rate 18 05/19/18 10:00 Blood Pressure 101/73 05/19/18 10:00 O2 Sat by Pulse Oximetry (%) 98 05/18/18 20:46 Constitutional: Well Nourished, No Distress HENT: YAtraumatic, Normocephalic, Conjunctiva Clear, EOM Intact Neck: Supple, Trachea Midline. No: Decreased ROM, Lymphadenopathy Cardiovascular: Pulse Irregular, S1, S2. 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 Code(s): I48.91 - UNSPECIFIED ATRIAL FIBRILLATION (2) HTN (hypertension) Assessment/Plan: Well controlled Cont current meds Code(s): I10 - ESSENTIAL (PRIMARY) HYPERTENSION (3) Elevated troponin I level Assessment/Plan: No Chest pian most likely demand ischemia Code(s): R74.8 - ABNORMAL LEVELS OF OTHER SERUM ENZYMES
--- NOTE | 2018-05-19 15:16 | EKG ---
Test Reason : Blood Pressure : / mmHG Vent. Rate : 107 BPM Atrial Rate : 267 BPM P-R Int : 000 ms QRS Dur : 148 ms QT Int : 398 ms P-R-T Axes : 000 -19 020 degrees QTc Int : 531 ms ATRIAL FLUTTER WITH VARIABLE A-V BLOCK WITH PREMATURE VENTRICULAR OR ABERRANTLY CONDUCTED COMPLEXES RIGHT BUNDLE BRANCH BLOCK ABNORMAL ECG WHEN COMPARED WITH ECG OF 17-MAY-2018 13:44, NONSPECIFIC T WAVE ABNORMALITY NO LONGER EVIDENT IN ANTERIOR LEADS Confirmed by JASON DOBSON MD ([id number]) on 05/19/2018 3:16:29 PM Referred By: Ashley GIBSON Confirmed By:JASON DOBSON MD
[2018-05-20 06:54] LABS: ANION GAP 6 (8-16); BASO % 0.5 % (0-2.0); BLOOD UREA NITROGEN 15 mg/dL (7-18); CALCIUM 8.7 mg/dL (8.5-10.1); CHLORIDE 109 mmol/L (98-107); CO2 26 mmol/L (21-32); CREATININE 1.1 mg/dL (0.7-1.3); EOS % 1.2 % (0-4.5); GLUCOSE,RANDOM 92 mg/dL (74-106); HEMATOCRIT 42.4 % (35.4-49); HEMOGLOBIN 14.5 GM/dL (11.7-16.9); LYMPH % 18.9 % (8-40); MCH 32.2 pg (25.7-33.7); MCHC 34.3 g/dl (32.0-35.9); MEAN CELL VOLUME 93.7 fl (80-96); MEAN PLT VOLUME 8.2 fl (7.5-11.1); NEUT % 72.4 % (42.8-82.8); PLATELET COUNT 180 K/MM3 (134-434); POTASSIUM 4.2 mmol/L (3.5-5.1); RBC 4.52 M/mm3 (4.00-5.60); RDW 13.3 % (11.9-15.9); SODIUM 141 mmol/L (136-145); WHITE BLOOD COUNT 8.4 K/mm3 (4.0-10.0)
--- NOTE | 2018-05-20 09:07 | PN ---
Progress Note, Physician Chief Complaint: sob History of Present Illness: continues to feel mild sob at times at rest here. no palpitations, cp, syncope denies any recent etoh including day of admit - Current Medication List Current Medications: Active Medications Acetaminophen (Tylenol -) 650 mg PO Q4H PRN PRN Reason: PAIN LEVEL 1-5 Apixaban (Eliquis -) 5 mg PO BID [facility] Last Admin: 05/19/18 21:05 Dose: 5 mg Cholecalciferol (Vitamin D3 -) 1,000 unit PO DAILY [facility] Last Admin: 05/19/18 09:04 Dose: 1,000 unit Diltiazem HCl (Cardizem Cd -) 240 mg PO DAILY [facility] Last Admin: 05/19/18 09:05 Dose: Not Given Metoprolol Succinate (Toprol Xl -) 50 mg PO DAILY [facility] Last Admin: 05/19/18 09:04 Dose: 50 mg Multivitamins/Minerals/Vitamin C (Tab-A-Vit -) 1 tab PO DAILY [facility] Last Admin: 05/19/18 09:04 Dose: 1 tab - Objective Vital Signs: Vital Signs Temperature 98.3 F 05/20/18 05:58 Pulse Rate 103 H 05/20/18 05:58 Respiratory Rate 20 05/20/18 05:58 Blood Pressure 130/76 05/20/18 05:58 O2 Sat by Pulse Oximetry (%) 97 05/20/18 05:58 Constitutional: Yes: No Distress, Calm Eyes: No: Sclera Icterus HENT: No: Nasal Congestion Cardiovascular: Yes: Pulse Irregular, S1, S2, Other (PMI non diplaced). No: JVD , Gallop, Murmur Respiratory: Yes: CTA Bilaterally. No: Accessory Muscle Use, Rales, Wheezes Gastrointestinal: Yes: Normal Bowel Sounds, Soft. No: Tenderness Musculoskeletal: Yes: Other (No kyphosis) Extremities: No: Cold, Cyanosis Edema: No Integumentary: No: Jaundice Neurological: Yes: Alert, Oriented (x3) Psychiatric: No: Agitated Labs: CBC, BMP 05/20/18 05:30 05/20/18 05:30 INR, PTT INR 1.25 (0.82-1.09) H 05/17/18 13:59 Assessment/Plan Cardiac MRI 06/14: nl LV size, mild decr EF 47% possibly underest'd due to ectopic beats. +apical noncompaction of LV. 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 nl RV size and function. 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 no shunt. EP study 07/15: no inducible VT Echo (INGRID) 05/14: nl LV size, borderline LVSF (in rapid aflutter). dilated RV wit normal fxn. mild MVP, trace MR. tele: aflutter 90s-120s typical (right-sided) AFL, paroxysmal: - suspect all tele is typical (isthmus-dept) flutter, no fib. - Currently on Cardizem 240 (increased from 180 home dose) and metoprolol succ 50--HRs at times rapid at rest - Has h/o DCCV 1 year ago, no sx's since - requires rhythm control strategy due to HRs difficult to control and pt very symptomatic (sob) when in AF - suspect sporadic sob at rest is related to transient rapid HRs--will increase metoprolol to 75 bid, continue diltiazem 240 for now - pt is accepted for transfer to EP at [facility] (Dr. 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 overall preserved LVEF. - on AC for aflutter - on BB for flutter. - routine echo surveillance of LVEF as doing (as outpatient) - of note, RV appears dilated on echoes but is likely artifact of RV asymmetric geometry, given MRI done to assess this showed definitively normal RV chamber size (and no fatty infiltration) HTN: - bp well controlled - same meds elevated troponin, BNP - trop 0.1 x3, flat trend/intermediate range = not c/w ACS - no ischemic ECG findings
[2018-05-20] MEDS: MULTIVITAMINS (DAILY MVI) TABLET (FP) PO SCH (10:05)
[2018-05-20] MEDS: CHOLECALCIFEROL (VITAMIN D3) 1,000 UNIT TABLET (FP) PO SCH (10:05)
[2018-05-20] MEDS: APIXABAN 5 MG TABLET PO SCH (10:05)
--- NOTE | 2018-05-20 11:52 | PN ---
Progress Note, Physician Chief Complaint: Mr Romo says he feels tired today. Denies cp, sob, n/v. - Current Medication List Current Medications: Active Medications Acetaminophen (Tylenol -) 650 mg PO Q4H PRN PRN Reason: PAIN LEVEL 1-5 Apixaban (Eliquis -) 5 mg PO BID [facility] Last Admin: 05/20/18 10:05 Dose: 5 mg Cholecalciferol (Vitamin D3 -) 1,000 unit PO DAILY [facility] Last Admin: 05/20/18 10:05 Dose: 1,000 unit Diltiazem HCl (Cardizem Cd -) 240 mg PO DAILY [facility] Last Admin: 05/20/18 10:05 Dose: 240 mg Metoprolol Succinate (Toprol Xl -) 50 mg PO DAILY [facility] Last Admin: 05/20/18 10:05 Dose: 50 mg Multivitamins/Minerals/Vitamin C (Tab-A-Vit -) 1 tab PO DAILY [facility] Last Admin: 05/20/18 10:05 Dose: 1 tab - Objective Vital Signs: Vital Signs Temperature 36.8 C 05/20/18 09:00 Pulse Rate 110 H 05/20/18 09:00 Respiratory Rate 16 05/20/18 09:00 Blood Pressure 148/70 05/20/18 09:00 O2 Sat by Pulse Oximetry (%) 97 05/20/18 05:58 Constitutional: Yes: Well Nourished, No Distress, Calm Cardiovascular: Yes: Pulse Irregular. No: Tachycardia, Gallop, Murmur, Rub Respiratory: Yes: Regular, CTA Bilaterally. No: Rales, Rhonchi, Tachypnea, Wheezes Gastrointestinal: Yes: Normal Bowel Sounds, Soft. No: Distention, Tenderness Extremities: Yes: WNL Edema: No Labs: CBC, BMP 05/20/18 05:30 05/20/18 05:30 INR, PTT INR 1.25 (0.82-1.09) H 05/17/18 13:59 Problem List - Problems (1) Atrial fibrillation with RVR Code(s): I48.91 - UNSPECIFIED ATRIAL FIBRILLATION (2) HTN (hypertension) Code(s): I10 - ESSENTIAL (PRIMARY) HYPERTENSION Assessment/Plan (1) Atrial fibrillation with RVR Assessment/Plan: -appreciate Dr Becker's assistance -toprol xl increased to bid -continue increased dose of diltiazem -continue eliquis -plan for transfer to [facility] for cardioversion secondary to aflutter over the weekend Code(s): I48.91 - UNSPECIFIED ATRIAL FIBRILLATION (2) HTN (hypertension) Assessment/Plan: -controlled Code(s): I10 - ESSENTIAL (PRIMARY) HYPERTENSION
[2018-05-20 14:25] VITALS: BP 126/68; PULSE 94; TEMP 98.3
--- NOTE | 2018-05-21 09:05 | DS ---
Physical Examination Vital Signs: Vital Signs Temperature 36.8 C 05/20/18 14:24 Pulse Rate 94 H 05/20/18 14:24 Respiratory Rate 20 05/20/18 14:24 Blood Pressure 126/68 05/20/18 14:24 O2 Sat by Pulse Oximetry (%) 97 05/20/18 10:00 Labs: CBC, BMP 05/20/18 05:30 05/20/18 05:30 Discharge Summary Reason For Visit: ATRIAL FIBRILLATION AND FLUTTER - Instructions Referrals: Vahe Ramirez MD [Primary Care Provider] - Disposition: TRANSFER ACUTE CARE/OTHER HOSP - Home Medications Comprehensive Discharge Medication List: Ambulatory Orders Multivitamins [Multivit ([facility] Formulary)] 1 tab PO DAILY 01/15/15 Apixaban [Eliquis -] 5 mg PO BID #60 tablet 04/30/17 Diltiazem Cd [Cardizem Cd -] 180 mg PO DAILY #30 tab 05/01/17 Metoprolol Succinate [Toprol XL -] 50 mg PO DAILY #30 tab 05/01/17 Cholecalciferol (Vitamin D3) [Vitamin D3] 1,000 unit PO DAILY 05/17/18
== END 2018-05-20 16:35 | disposition short-term general hospital (02) | DRG 309 ==
LOC: JER 13:18 → JERBED 16:18 → J4W 19:24
PROVIDERS: ADMIT Internal Medicine; ATTEND Internal Medicine
DX: I48.0 Paroxysmal atrial fibrillation (principal); I24.8 Other forms of acute ischemic heart disease; I48.92 Unspecified atrial flutter; I10 Essential (primary) hypertension; Z79.01 Long term (current) use of anticoagulants; I45.10 Unspecified right bundle-branch block; I47.2 Ventricular tachycardia
CPT/HCPCS: 36415; 71045-TC-FY; 80048; 80053; 82550; 82553; 83735; 83880; 84100; 84439; 84443; 84484; 85025; 85610; 85730; 93005; 93010; 99285-25

== ENCOUNTER 2018-09-13 09:32 | Day surgery (SDC) | payer OTHER ==
[2018-09-12 15:27] VITALS: BMI 28.7
[2018-09-13] MEDS ORDERED: LIDOCAINE VISCOUS 2% ORAL/TOP 20 ML UNIT-DOSE CUP MM ONE (12:39)
[2018-09-13 13:01] VITALS: TEMP 98
[2018-09-13 13:45] VITALS: BP 119/82; PULSE 67
--- NOTE | 2018-09-13 16:46 | PROC ---
Cardioversion Indication: Atrial fibrillation Risks and Benefits Explained: Yes Consent on Chart: Yes INGRID done prior to Cardioversion: Yes INGRID findings: No thrombus Patient anticoagulated: Yes - Procedure Anesthesiologist present: Yes Medication given: propofol Joules delivered: 120x1 Rhythm post cardioversion: sinus Remarks: Patient tolerated procedure well, no complications.
--- NOTE | 2018-09-13 16:58 | ECHO ---
Version: 1 Study ID: [id number] Institution Name Institution Address Institution Address Line #2 Telephone & email Name: RACHEL BABCOCK Study Date: 09/13/2018, 12:32 PM Patient Location: [facility] : 1945 (MM/DD/YYYY) Gender: Male Height: 70 in Age: 72 Years Ethnicity: T Weight: 200 lb Reason For Study: R/O THROMBUS CARDIOVERSIONBSA: 2.09 m Summary Statements The patient was in atrial fibrillation with controlled ventricular rate during the exam. The left ventricular size, thickness and function are normal The right ventricle is normal in size and function. The left atrium is moderately dilated. The right atrium is moderately dilated. There is trace to mild mitral regurgitation. There is moderate tricuspid regurgitation. Procedure: A 2D transesophageal echocardiogram with Doppler and color flow Doppler was performed. Informed cons ent for Transesophageal Echocardiogram, and use of a contrast agent as needed, was obtained prior to the pro cedure. The patient was brought to the endoscopy suite in a fasting state. An intravenous line was placed. A topical anesthetic agent was used for oropharangeal anesthesia. A bite block was inserted. IV concious sedat ion was administered using propafol. A multifrequency, multiplane transesopheageal echocardiographic endosco pe was inserted and manipulated in the standard fashion to achieve multiplane views. The transesophageal pr obe was passed without difficulty. The usual views were obtained; basal, mid-esophageal, transgastric and ao rtic views. The patient's vital signs, including blood pressure, heart rate, pulse oximetry and cardiac r hythm were monitored throughout the procedure and remained stable. The patient tolerated the procedure wel l without evidence of orophangeal or esophageal trauma. There were no complications. The patient was in atrial fibrillation with controlled ventricular rate during the exam. Left Ventricle The left ventricular size, thickness and function are normal. Right Ventricle The right ventricle is normal in size and function. Atria The left atrium is moderately dilated. No thrombus is detected in the left atrial appendage. The rig ht atrium is moderately dilated. The interatrial septum is intact with no evidence for an atrial septal defect . Mitral Valve There is trace to mild mitral regurgitation. Tricuspid Valve There is moderate tricuspid regurgitation. Aortic Valve The aortic valve is trileaflet. There is mild aortic sclerosis.;. No hemodynamically significant aramis vular aortic stenosis. No aortic regurgitation is present. Pulmonic Valve There is no pulmonic valvular regurgitation. Great Vessels Normal aortic arch, descending and ascending aorta. The aortic root is normal size. Pericardium/Pluera There is no pericardial effusion. MMode / 2D Measurements BMI: 28.7 kilograms/m BSA([facility]): 2.14 m Height (metric): 177.8 cm Weight (metric): 90.7 kg Other Measurements & Calculations BSA: 2.09 m MD Ruy Ford 09/13/2018, 4:57 PM Ordering Physician: Ruy Ford Referring Physician: URY FORD Performed By: Yasmine Mendez
--- NOTE | 2018-09-16 23:48 | EKG ---
Test Reason : Blood Pressure : / mmHG Vent. Rate : 070 BPM Atrial Rate : 070 BPM P-R Int : 204 ms QRS Dur : 156 ms QT Int : 458 ms P-R-T Axes : 062 052 055 degrees QTc Int : 494 ms NORMAL SINUS RHYTHM POSSIBLE LEFT ATRIAL ENLARGEMENT RIGHT BUNDLE BRANCH BLOCK ABNORMAL ECG WHEN COMPARED WITH ECG OF 19-MAY-2018 11:09, SINUS RHYTHM HAS REPLACED ATRIAL FLUTTER VENT. RATE HAS DECREASED BY 37 BPM T WAVE VARIATION Confirmed by CHRIS AMANDA MD ([id number]) on 09/16/2018 11:47:40 PM Referred By: Confirmed By:CHRIS AMANDA MD
== END 2018-09-13 13:45 | disposition home or self-care (01) ==
LOC: JASU-ENDO 09:32
PROVIDERS: ATTEND Internal Medicine Cardiovascular Disease
PROC: 5A2204Z Restoration of Cardiac Rhythm, Single (ICD-10-PCS; 2018-09-13)
PROC: B246ZZ4 Ultrasonography of Right and Left Heart, Transesophageal (ICD-10-PCS; principal; 2018-09-13 11:30)
DX: I48.91 Unspecified atrial fibrillation (principal)
CPT/HCPCS: 92960; 93005; 93010; 93312; 93325

== ENCOUNTER 2019-01-02 12:11 | Observation (INO) | payer OTHER ==
--- NOTE | 2019-01-02 13:13 | PDOC ---
History of Present Illness - General Chief Complaint: Chest Pain Stated Complaint: CHEST PAIN Time Seen by Provider: 01/02/19 13:09 - History of Present Illness Initial Comments: 01/02/19 13:13 73 yo M with h/o HTN, paroxysmal A-fib ( on Eliquis ), A-flutter who p/w chest pain. Patient reports acute onset of pleuritic, retrosternal chest discomfort radiating to back, unremitting, now slightly improved, beginning at 0600 this AM. Worse with deep inhalation. No alleviators. Also endorses [place]. Compliant with daily Eliquis (5mg), Metoprolol 50 mg BID, and Diltiazem 240 mg QD. Last medication this AM metoprolol. Patient denies FERNANDEZ, vision change, palpitations, cough, wheezing, orthopena, PND , leg swelling/pain, N/V, F,C, urinary complaints, hematuria, BPR, abdominal pain, diarrhea, constipation, lightheadedness, weakness, sensory changes. PMHx: as noted above ROS: as noted SHx: Distant smoking history. Denies IVDA Allergies: NKDA PMD: Vahe Ramirez Cardiology: Dr. Becker Past History - Past Medical History Allergies/Adverse Reactions: Allergies Allergy/AdvReac Type Severity Reaction Status Date / Time No Known Drug Allergies Allergy Verified 01/02/19 12:22 Home Medications: Ambulatory Orders Apixaban [Eliquis -] 5 mg PO BID #60 tablet 04/30/17 Diltiazem Cd [Cardizem Cd -] 240 mg PO DAILY 01/02/19 Metoprolol Succinate [Toprol XL -] 50 mg PO BID 01/02/19 Anemia: No Asthma: No Cancer: No Cardiac Disorders: Yes (ATRIAL FIBRILLATION, CARDIAC ABLATION) CVA: No COPD: No CHF: No Dementia: No Diabetes: No GI Disorders: No Disorders: No HTN: Yes Hypercholesterolemia: No Liver Disease: No Seizures: No Thyroid Disease: No - Surgical History Abdominal Surgery: Yes (RIGHT INGUINAL HERNIA) Appendectomy: Yes Cardiac Surgery: No Cholecystectomy: No Lung Surgery: No Neurologic Surgery: No Orthopedic Surgery: No - Immunization History Immunization Up to Date: Yes - Suicide/Smoking/Psychosocial Hx Smoking History: Never smoked Have you smoked in the past 12 months: No If you are a former smoker, when did you quit?: 1970 Hx Alcohol Use: Yes Drug/Substance Use Hx: No Substance Use Type: None Hx Substance Use Treatment: No *Physical Exam - Vital Signs Last Vital Signs Temp Pulse Resp BP Pulse Ox 99.0 F 80 18 148/81 96 01/02/19 12:22 01/02/19 12:22 01/02/19 12:22 01/02/19 12:22 01/02/19 12:22 - Physical Exam Comments: 01/02/19 13:31 GENERAL: Awake, alert, and fully oriented, in no acute distress HEAD: No signs of trauma, normocephalic, atraumatic EYES: PERRLA, EOMI, sclera anicteric, conjunctiva clear ENT: Auricles normal inspection, hearing grossly normal, nares patent, oropharynx clear without exudates. Moist mucosa NECK: Normal ROM, supple, no lymphadenopathy, JVD, or masses LUNGS: No distress, speaks full sentences, clear to auscultation bilaterally HEART: Irregular rate and rhythm. Normal S1 and S2, no murmurs, rubs or gallops , peripheral pulses normal and equal bilaterally. ABDOMEN: Soft, nontender, normoactive bowel sounds. No guarding, no rebound. No masses EXTREMITIES : Normal inspection, Normal range of motion, no edema. No clubbing or cyanosis. NEUROLOGICAL: Cranial nerves II through XII grossly intact. Normal speech, normal gait, no focal sensorimotor deficits SKIN: Warm, Dry, normal turgor, no rashes or lesions noted Moderate Sedation - Procedure Monitoring Vital Signs: Procedure Monitoring Vital Signs Temperature 99.0 F 01/02/19 12:22 Pulse Rate 80 01/02/19 12:22 Respiratory Rate 18 01/02/19 12:22 Blood Pressure 148/81 01/02/19 12:22 O2 Sat by Pulse Oximetry (%) 96 01/02/19 12:22 Heart Score/ECG Review - History History: Moderately suspicious - Electrocardiogram EKG: Non specific repolarization disturbance - Age Age: >/= 65 - Risk Factors Risk Factors Heart Score: Yes Hx Hypercholesterolemia, Yes Hx Hypertension, Yes Hx Diabetes, Yes Smoking History, Yes Positive family hx of cardiac disease, Yes Hx Obesity Based on the list above the patient has:: >/=3 risk factors or Hx atherosclerotic disease - Troponin Troponin: </= normal limit - Score Heart Score - Total: 6 ED Treatment Course - LABORATORY CBC & Chemistry Diagram: 01/02/19 13:15 01/02/19 13:15 - RADIOLOGY Radiology Studies Ordered: Category Date Time Status CXRPORT [CHEST X-RAY PORTABLE*] [RAD] Stat Radiology 01/02/19 13:11 Ordered Medical Decision Making - Medical Decision Making 01/02/19 13:26 73 yo M with h/o HTN, paroxysmal A-fib ( on Eliquis ), A-flutter ( ablation [facility] 2017) who p/w acute onset of pleuritic, retrosternal chest discomfort radiating to back, beginning at 0600 this AM. Vitals wnl, AF, A&Ox3. Physical exam heart irregular, rate and rhythm. Lungs CTA. ACS/NH r/o. Low risk PE Weils criteria. No evidence volume/fluid overload. Low suspcion CHF, COPD, Asthma. Will assess for cardiac dysarrythmias, hypoglycemia, electrolyte abnml, metabolic and toxic derangements, acid-base disturbances, infection, plerual and pericardial effusions. Will provide adequate control. Ed Course: CBC: Unremarkable EKG: A-fib with RvR. HR 126 + RBBB, Q wave V1, absent acute RAMBO/STD. Similar to prior interval EKG (08/2018) Diltiazem 20 mg IV 01/02/19 14:16 CXR: Unremarkable ASA 162 HR imrpoved to 80's Metoprolol 25 mg 01/02/19 14:42 CMP: Unremarkable Trop: Neg Heart score ~6 01/02/19 15:[address] Becker answering service. Awaiting call back. Dr. Guzman is covering physician. 01/02/19 15:[address] tang. Will come see patient Pt. admitted to medicine. Endorsed to Dr. Leary *DC/Admit/Observation/Transfer Diagnosis at time of Disposition: Chest pain at rest, Atrial fibrillation with RVR - Discharge Dispostion Condition at time of disposition: Stable Decision to Admit order: Yes - Referrals Referrals: Vahe Ramirez MD [Primary Care Provider] - - Patient Instructions - Post Discharge Activity
--- NOTE | 2019-01-02 13:33 | PDOC ---
Attending Attestation - HPI HPI: The patient is a 73 year old male, with a significant PMH of HTN, paroxysmal Afib (on Eliquis), and A-flutter, who presents to the emergency department today complaining of chest pain for one day. Patient reports sudden onset chest pain that began ~8 hours ago (6am this morning). He notes that the chest pain is pleuritic, most prominent retrosternal and radiates to her back, and is exacerbated with deep breathing. Patient endorses associated dyspnea on exertion , and notes he took all of his daily medications this morning. The patient denies headache and dizziness. Denies fever, chills, nausea, vomit, diarrhea and constipation. Denies dysuria, frequency, urgency and hematuria. Allergies: NKA Past surgical history: Cardiac ablation, right inguinal hernia repair, appendectomy Social history: Former smoker (quit 40 years ago) PCP: Dr. Vahe Ramirez Maturity Checker: Dr. John Becker 01/02/19 14:30 - Physicial Exam PE: GENERAL: Awake, alert, and fully oriented, in no acute distress HEAD: No signs of trauma EYES: PERRLA, EOMI, sclera anicteric, conjunctiva clear ENT: Auricles normal inspection, hearing grossly normal, nares patent, oropharynx clear without exudates. Moist mucosa NECK: Normal ROM, supple, no lymphadenopathy, JVD, or masses LUNGS: Breath sounds equal, clear to auscultation bilaterally. No wheezes, and no crackles HEART: +Irregular rate and rhythm. no murmurs, rubs or gallops ABDOMEN: Soft, nontender, normoactive bowel sounds. No guarding, no rebound. No masses EXTREMITIES: Normal range of motion, no edema. No clubbing or cyanosis. No cords, erythema, or tenderness NEUROLOGICAL: Cranial nerves II through XII grossly intact. Normal speech, normal gait, normal mood and affect. SKIN: Warm, Dry, normal turgor, no rashes or lesions noted. 01/02/19 14:30 - Medical Decision Making EXAM#: TYPE/EXAM: RESULT: [id number] RAD/CHEST X-RAY PORTABLE* Shortness of breath. Patient is rotated to the left side. Elevated left diaphragm. No airspace opacities are seen in the visualized lungs. No pneumothorax, or pleural effusion is seen. No evidence of pneumothorax. No large pleural effusion is seen. Prominent cardiac silhouette. The visualized osseous structures appear intact. Reported By: Bro Joseph MD 01/02/19 13:54 Documentation prepared by JOSE RAUL Sue, acting as emergency medical services coordinator for Christen Stratton MD. 01/02/19 14:13 <Samantha Li - Last Filed: 01/02/19 17:29> - Resident Resident Name: Jayce Crouchson - Medical Decision Making 01/04/19 16:46 Pt presents to the ED complaining of new onset chest pain. Initially tachycardic on arrival improved without intervention. Multiple cardiac risk factors as listed in resident note. Will check labs and admit to medicine for r /o acs. Will treat with ASA. <Christen Stratton - Last Filed: 01/04/19 16:48> Heart Score/ECG Review - ECG Intrepretation Comment:: Poor data quality, interpretation may be adversely affected. Atrial fibrillation with rapid ventricular response. Right bundle branch block. Septal infarct, age undetermined. Abnormal ECG. 01/02/19 17:29 <Samantha Li - Last Filed: 01/02/19 17:29>
[2019-01-02 13:41] LABS: BASO % 0.5 % (0-2.0); EOS % 0.2 % (0-4.5); HEMOGLOBIN 15.9 GM/dL (11.7-16.9); LYMPH % 7.3 % (8-40); MCH 32.2 pg (25.7-33.7); MCHC 34.6 g/dl (32.0-35.9); MEAN CELL VOLUME 93.2 fl (80-96); MEAN PLT VOLUME 8.8 fl (7.5-11.1); MONO % 6.2 % (3.8-10.2); NEUT % 85.8 % (42.8-82.8); PLATELET COUNT 195 K/MM3 (134-434); RBC 4.94 M/mm3 (4.00-5.60); RDW 13.8 % (11.9-15.9); WHITE BLOOD COUNT 13.3 K/mm3 (4.0-10.0)
[2019-01-02] MEDS ORDERED: dilTIAZem HCL 50 MG/10 ML - 10 ML VIAL IVPUSH ONE (13:53)
[2019-01-02] MEDS ORDERED: dilTIAZem HCL 125 MG/25 ML - 25 ML VIAL ONE (13:56)
[2019-01-02] MEDS ORDERED: ASPIRIN 81 MG CHEWABLE TABLETS PO ONE (14:25)
[2019-01-02] MEDS ORDERED: metoPROLOL SUCCINATE 25 MG TAB.SR.24H (FP) PO ONE (14:26)
[2019-01-02 14:36] LABS: ALBUMIN 4.3 g/dl (3.4-5.0); ALK PHOS 91 U/L (45-117); ANION GAP 8 MMOL/L (8-16); BILIRUBIN,TOTAL 1.5 mg/dL (0.2-1); BLOOD UREA NITROGEN 16 mg/dL (7-18); CALCIUM 9.3 mg/dL (8.5-10.1); CHLORIDE 104 mmol/L (98-107); CO2 24 mmol/L (21-32); CREATININE 1.1 mg/dL (0.55-1.3); GLUCOSE,RANDOM 90 mg/dL (74-106); POTASSIUM 5.1 mmol/L (3.5-5.1); SGOT/AST 38 U/L (15-37); SGPT/ALT 26 U/L (13-61); SODIUM 136 mmol/L (136-145)
[2019-01-02] MEDS ORDERED: ASPIRIN 81 MG CHEWABLE TABLETS ONE (14:43)
--- NOTE | 2019-01-02 15:41 | CON.CARD ---
Cardiology Consult (text) - Consultation Consultation Note: Consult Consult Specialty:: Cardiology Referred by:: Jun Reason for Consultation:: chest pain - History of Present Illness Chief Complaint: chest pain History of Present Illness: 72M history of afib, HTN presenting with chest pain. Started 6 AM today, worse with deep inspiration, center of chest. Also has dyspnea on exertion. In the ER was in afib with rate 120s, improved with IV diltiazem. Prior to today felt well, had been going for walks as usual, occasional palps. Sees Dr. Becker for cardio, recently metoprolol dose was increased from 50 mg daily to 50 mg BID, also on cardizem. Still feels difficult taking deep breaths, went to bathroom and back and felt it was difficult to breathe. - History Source History Provided By: Patient Limitations to Obtaining History: No Limitations - Past Medical History Cardio/Vascular: Yes: AFIB, HTN - Past Surgical History Past Surgical History: Yes: Appendectomy, Hernia Repair - Alcohol/Substance Use Hx Alcohol Use: Yes (DAILY) History of Substance Use: reports: None - Smoking History Smoking history: Never smoked Have you smoked in the past 12 months: No If you are a former smoker, when did you quit?: 1970 - Social History ADL: Independent History of Recent Travel: No Home Medications - Allergies Allergies/Adverse Reactions: Allergies Allergy/AdvReac Type Severity Reaction Status Date / Time No Known Drug Allergies Allergy Verified 01/02/19 12:22 Home Medications Medication Instructions Recorded Apixaban [Eliquis -] 5 mg PO BID #60 tablet 04/30/17 Diltiazem Cd [Cardizem Cd -] 240 mg PO DAILY 01/02/19 Metoprolol Succinate [Toprol XL -] 50 mg PO BID 01/02/19 Family Disease History - Family Disease History Family Disease History: Heart Disease: Father Review of Systems - Review of Systems Constitutional: reports: No Symptoms Eyes: reports: No Symptoms HENT: reports: No Symptoms Neck: reports: No Symptoms Cardiovascular: reports: Palpitations, Shortness of Breath Respiratory: reports: No Symptoms Gastrointestinal: reports: No Symptoms Musculoskeletal: reports: No Symptoms Integumentary: reports: No Symptoms Neurological: reports: No Symptoms Endocrine: reports: No Symptoms Vital Signs: Vital Signs Period Temp Pulse Resp BP Sys/Almonte Pulse Ox Last 24 Hr 99.0 F 80-125 18-18 113-148/81-90 96-100 Constitutional: Yes: Well Nourished, No Distress Eyes: Yes: Conjunctiva Clear, EOM Intact HENT: Yes: Atraumatic, Normocephalic Neck: Yes: Supple Respiratory: Yes: Regular, CTA Bilaterally Gastrointestinal: Yes: Normal Bowel Sounds, Soft Cardiovascular: Yes: Pulse Irregular Heart Sounds: Yes: S1, S2 Musculoskeletal: Yes: WNL Edema: No Psychiatric: Yes: Alert, Oriented Laboratory Last Values WBC 13.3 K/mm3 (4.0-10.0) H 01/02/19 13:15 RBC 4.94 M/mm3 (4.00-5.60) 01/02/19 13:15 Hgb 15.9 GM/dL (11.7-16.9) 01/02/19 13:15 Hct 46.0 % (35.4-49) 01/02/19 13:15 MCV 93.2 fl (80-96) 01/02/19 13:15 MCH 32.2 pg (25.7-33.7) 01/02/19 13:15 MCHC 34.6 g/dl (32.0-35.9) 01/02/19 13:15 RDW 13.8 % (11.9-15.9) 01/02/19 13:15 Plt Count 195 K/MM3 (134-434) 01/02/19 13:15 MPV 8.8 fl (7.5-11.1) 01/02/19 13:15 Absolute Neuts (auto) 11.4 K/mm3 (1.5-8.0) H 01/02/19 13:15 Neutrophils % 85.8 % (42.8-82.8) H 01/02/19 13:15 Lymphocytes % 7.3 % (8-40) L D 01/02/19 13:15 Monocytes % 6.2 % (3.8-10.2) 01/02/19 13:15 Eosinophils % 0.2 % (0-4.5) D 01/02/19 13:15 Basophils % 0.5 % (0-2.0) 01/02/19 13:15 Nucleated RBC % 0 % (0-0) 01/02/19 13:15 Sodium 136 mmol/L (136-145) 01/02/19 13:15 Potassium 5.1 mmol/L (3.5-5.1) 01/02/19 13:15 Chloride 104 mmol/L (98-107) 01/02/19 13:15 Carbon Dioxide 24 mmol/L (21-32) 01/02/19 13:15 Anion Gap 8 MMOL/L (8-16) 01/02/19 13:15 BUN 16 mg/dL (7-18) 01/02/19 13:15 Creatinine 1.1 mg/dL (0.55-1.3) 01/02/19 13:15 Creat Clearance w eGFR > 60 (>60) 01/02/19 13:15 Random Glucose 90 mg/dL (74-106) 01/02/19 13:15 Calcium 9.3 mg/dL (8.5-10.1) 01/02/19 13:15 Total Bilirubin 1.5 mg/dL (0.2-1) H 01/02/19 13:15 AST 38 U/L (15-37) H 01/02/19 13:15 ALT 26 U/L (13-61) 01/02/19 13:15 Alkaline Phosphatase 91 U/L (45-117) 01/02/19 13:15 Creatine Kinase 182 U/L (26-308) 01/02/19 13:15 Creatine Kinase Index 1.0 % (0.0-5.0) 01/02/19 13:15 CK-MB (CK-2) 2.0 ng/mL (0.5-3.6) 01/02/19 13:15 Troponin I 0.05 ng/ml (0.00-0.05) 01/02/19 13:15 Total Protein 8.0 g/dl (6.4-8.2) 01/02/19 13:15 Albumin 4.3 g/dl (3.4-5.0) 01/02/19 13:15 holter 10/2018 afib, avg 94 bpm, max 146 hourly mean >100 bpm x7, 6000 PVCs, 3 beat run WCT Echo 03/2018: tds, nl LV function, LA severely dilated, interatrial septal aneurysm, mild MR, ao root 4.0 cm CMR 06/14 nl LV/RV size, not c/w ARVD, mildly decreased EF 47%, + apical noncompaction, + linear subepicardial myocardial enhancement 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, mild post MVP, no L to R shunt INGRID with DCCV 05/14 nl LV, borderline LVSF in rapid AF, dil RV, nl fxn, mild MVP with trace MR CXR: no acute process EKG: afib rate 120 no ischemic changes Assessment/Plan 72M h/o paroxysmal afib p/w chest pain chest pain - pleuritic pain, worse with taking deep breaths and feels like he can't take a full breath - trop neg x 1, EKG stable less likely ACS - CT chest pending - monitor on tele Afib - s/p DCCV 08/2018 initially in sinus, now has been in afib, recent holter 2018 shows AFib with avg rate 94 bpm - rate improved after IV diltiazem and 25 mg PO metoprolol x 1 - continue diltiazem 240 mg daily - increase metoprolol succinate to 75 mg BID - continue eliquis - monitor on tele HTN - continue diltiazem and metoprolol
--- NOTE | 2019-01-02 16:27 | HP ---
CHIEF COMPLAINT: b/l chest pain PCP: HISTORY OF PRESENT ILLNESS: 73 yo M with h/o HTN, paroxysmal A-fib ( on Eliquis ), A-flutter who p/w chest pain. Patient reports acute onset b/l chest pain, radiating to back 7/10 in intensity, now 5/10, gets worse while lying down and gets better with sitting. also increasers with deep breath. Pain was associated with palpitations but no lightheadedness, dizziness, nausea, vomiting, swelling in legs, orthopnea. Denies flu like symptoms, cough, sneezing, runny nose. He shoveled the snow in sunday. Patient denies FERNANDEZ, vision change, palpitations, cough, wheezing, orthopena, PND, leg swelling/pain, N/V, F,C, urinary complaints , hematuria, BPR, abdominal pain, diarrhea, constipation, lightheadedness, weakness, sensory changes. ER course was notable for: (1)cbc, cmp, cxr (2)cardiazem 20 iv push (3)metoprolol succinate 25 Recent Travel: no PAST MEDICAL HISTORY: as above PAST SURGICAL HISTORY: hernia repai, appendix, left knee surgery Social History: Smoking: no Alcohol:drinks couple of glass of wine airam night Drugs: no Family History:no Allergies No Known Drug Allergies Allergy (Verified 01/02/19 12:22) HOME MEDICATIONS: Home Medications Medication Instructions Recorded Apixaban [Eliquis -] 5 mg PO BID #60 tablet 04/30/17 Diltiazem Cd [Cardizem Cd -] 240 mg PO DAILY 01/02/19 Metoprolol Succinate [Toprol XL -] 50 mg PO BID 01/02/19 REVIEW OF SYSTEMS CONSTITUTIONAL: Absent: fever, chills, diaphoresis, generalized weakness, malaise, loss of appetite, weight change HEENT: Absent: rhinorrhea, nasal congestion, throat pain, throat swelling, difficulty swallowing, mouth swelling, ear pain, eye pain, visual changes CARDIOVASCULAR: Absent: chest pain, syncope, palpitations, irregular heart rate, lightheadedness , peripheral edema RESPIRATORY: Absent: cough, shortness of breath, dyspnea with exertion, orthopnea, wheezing, stridor, hemoptysis GASTROINTESTINAL: Absent: abdominal pain, abdominal distension, nausea, vomiting, diarrhea, constipation, melena, hematochezia GENITOURINARY: Absent: dysuria, frequency, urgency, hesitancy, hematuria, flank pain, genital pain MUSCULOSKELETAL: Absent: myalgia, arthralgia, joint swelling, back pain, neck pain SKIN: Absent: rash, itching, pallor HEMATOLOGIC/IMMUNOLOGIC: Absent: easy bleeding, easy bruising, lymphadenopathy, frequent infections ENDOCRINE: Absent: unexplained weight gain, unexplained weight loss, heat intolerance, cold intolerance NEUROLOGIC: Absent: headache, focal weakness or paresthesias, dizziness, unsteady gait, seizure, mental status changes, bladder or bowel incontinence PSYCHIATRIC: Absent: anxiety, depression, suicidal or homicidal ideation, hallucinations. PHYSICAL EXAMINATION Vital Signs - 24 hr 01/02/19 01/02/19 01/02/19 12:22 14:00 14:55 Temperature 99.0 F Pulse Rate 80 Pulse Rate [ 125 H 89 Left] Respiratory 18 18 Rate Blood Pressure 148/81 Blood Pressure 113/90 [Left Arm] O2 Sat by Pulse 96 100 Oximetry (%) GENERAL: Awake, alert, and fully oriented, in no acute distress. NECK: no JVD, or masses. LUNGS: Breath sounds equal, clear to auscultation bilaterally. crackles at bases . No accessory muscle use. HEART: s1s2 normal, no murmur, irregular ABDOMEN: Soft, nontender, not distended, normoactive bowel sounds, no guarding, no rebound, no masses. MUSCULOSKELETAL: Normal range of motion at all joints. No bony deformities or tenderness. No CVA tenderness. UPPER EXTREMITIES: 2+ pulses, warm, well-perfused. No cyanosis. No clubbing. No peripheral edema. LOWER EXTREMITIES: warm, well-perfused. No calf tenderness. No peripheral edema. NEUROLOGICAL: Normal speech. Normal gait. PSYCHIATRIC: Cooperative. Good eye contact. SKIN: Warm, dry, Laboratory Results - last 24 hr 01/02/19 01/02/19 13:15 13:15 WBC 13.3 H RBC 4.94 Hgb 15.9 Hct 46.0 MCV 93.2 MCH 32.2 MCHC 34.6 RDW 13.8 Plt Count 195 MPV 8.8 Absolute Neuts (auto) 11.4 H Neutrophils % 85.8 H Lymphocytes % 7.3 L D Monocytes % 6.2 Eosinophils % 0.2 D Basophils % 0.5 Nucleated RBC % 0 Sodium 136 Potassium 5.1 Chloride 104 Carbon Dioxide 24 Anion Gap 8 BUN 16 Creatinine 1.1 Creat Clearance w eGFR > 60 Random Glucose 90 Calcium 9.3 Total Bilirubin 1.5 H AST 38 H ALT 26 Alkaline Phosphatase 91 Creatine Kinase 182 Creatine Kinase Index 1.0 CK-MB (CK-2) 2.0 Troponin I 0.05 Total Protein 8.0 Albumin 4.3 Home Medication List Medication Instructions Recorded Confirmed Type Diltiazem Cd [Cardizem Cd -] 240 mg PO DAILY 01/02/19 01/02/19 History Metoprolol Succinate [Toprol XL -] 50 mg PO BID 01/02/19 01/02/19 History Active Medications Generic Name Dose Route Start Last Admin Trade Name Freq PRN Reason Stop Dose Admin Apixaban 5 mg 01/02/19 22:00 Eliquis - PO BID PAMELA Diltiazem HCl 240 mg 01/03/19 10:00 Cardizem Cd - PO DAILY PAMELA Metoprolol Succinate 75 mg 01/02/19 22:00 Toprol Xl - PO BID PAMELA Prednisone 10 mg 01/02/19 16:30 Deltasone - PO DAILY PAMELA ASSESSMENT/PLAN: atypical chest pain likely pleuritic. etiology not clear unlikely pe ( patient is on eliquis 5 mg bid) start him on prednisone 10mg ct chest without contrast cardiac monitoring afib with rvr got cardiazem in er metoprolol increased to 75 bid continue cardiazem cardiac monitoring tsh cardiology on case continue HTN continue home meds dvt pro; eliquis gi pro; zantac fluid orally allowed electrolyte: repeat in am nutrition low salt diet dispo; tele obs Visit type - Emergency Visit Emergency Visit: Yes ED Registration Date: 01/02/19 Care time: The patient presented to the Emergency Department on the above date and was hospitalized for further evaluation of their emergent condition. - New Patient This patient is new to me today: Yes Date on this admission: 01/03/19 - Critical Care Critical Care patient: No
--- NOTE | 2019-01-02 17:17 | PN ---
Teaching Attending Note Name of Resident: Gunnar Leary ATTENDING PHYSICIAN STATEMENT I saw and evaluated the patient. I reviewed the resident's note and discussed the case with the resident. I agree with the resident's findings and plan as documented. CC: I'm having chest pain HPI: Mr Romo is a very pleasant 73 year old male who comes in with chest pain. He says it began this morning when he woke up. It is a sore type of pain and bilateral. He also feels it in his back. At its worst, it was an 8/10. It did not radiate. It's constant but made worse by deep breathing. He says it is improving currently. He is also short of breath with it, mainly dyspnea on exertion. He is not short of breath at rest or when lying down. He denies fevers , chills, lightheadedness, dizziness, syncope, chest pressure, abdominal pain, nausea, vomiting, diarrhea, constipation, pain or difficulty urinating, edema, or redness in one or both extremities. He feels the pain is improving and is now a 3/10 PMHx: afib, HTN PSHx: appendectomy, hernia repair, ablation Allergies: NKDA SHx: +EtOH, denies smoking and [employer] FHx: Father with CAD ROS: full review of systems obtained, as per HPI and otherwise negative OBJECTIVE: Last Vital Signs Temp Pulse Resp BP Pulse Ox 37.2 C 89 18 113/90 100 01/02/19 12:22 01/02/19 14:55 01/02/19 14:55 01/02/19 14:55 01/02/19 14:55 Gen: nad HEENT: perrla, eomi, mmm Pulm: bibasijerome bethea CV: irreg irreg but rate controlled without m/r/g Abd: +bs, s/nt/nd Ext: no c/c/e CBC, BMP 01/02/19 13:15 01/02/19 13:15 ASSESSMENT AND PLAN: Problem List - Problems (1) Pleurisy Assessment/Plan: -unclear cause but suspect viral -will admit to tele obs -case d/w cardiology, does not appear cardiac -improving -will begin low dose prednisone for short course -monitor overnight Code(s): R09.1 - PLEURISY (2) Atrial fibrillation with RVR Assessment/Plan: -rate controlled after IV diltiazem -case d/w Dr Guzman -increase toprol xl to 75mg -continue eliquis Code(s): I48.91 - UNSPECIFIED ATRIAL FIBRILLATION (3) HTN (hypertension) Assessment/Plan: -controlled Code(s): I10 - ESSENTIAL (PRIMARY) HYPERTENSION (4) Shortness of breath on exertion Assessment/Plan: -chest CT reviewed, awaiting official read -monitor at this point, appears comfortable Code(s): R06.02 - SHORTNESS OF BREATH
[2019-01-02] MEDS: predniSONE 10 MG TABLET (UD) PO SCH (17:34)
[2019-01-02 17:48] VITALS: BMI 31.9
[2019-01-02] MEDS: APIXABAN 5 MG TABLET PO SCH (21:50)
[2019-01-02] MEDS: RANITIDINE HCL 150 MG TABLET (FP) PO SCH (21:50)
[2019-01-03] MEDS ORDERED: ACETAMINOPHEN 325 MG TABLET (FP) PO PRN (00:23)
[2019-01-03 07:05] LABS: BASO % 0.3 % (0-2.0); EOS % 0.2 % (0-4.5); HEMATOCRIT 44.5 % (35.4-49); HEMOGLOBIN 15.8 GM/dL (11.7-16.9); LYMPH % 17.9 % (8-40); MCH 33.6 pg (25.7-33.7); MCHC 35.4 g/dl (32.0-35.9); MEAN CELL VOLUME 95.1 fl (80-96); MEAN PLT VOLUME 8.6 fl (7.5-11.1); MONO % 9.7 % (3.8-10.2); NEUT % 71.9 % (42.8-82.8); PLATELET COUNT 170 K/MM3 (134-434); RBC 4.68 M/mm3 (4.00-5.60); RDW 13.6 % (11.9-15.9)
[2019-01-03 08:10] LABS: ALBUMIN 3.6 g/dl (3.4-5.0); ALK PHOS 80 U/L (45-117); ANION GAP 5 MMOL/L (8-16); BLOOD UREA NITROGEN 14 mg/dL (7-18); CALCIUM 8.3 mg/dL (8.5-10.1); CHLORIDE 107 mmol/L (98-107); CO2 26 mmol/L (21-32); CREATININE 1.1 mg/dL (0.55-1.3); GLUCOSE,RANDOM 99 mg/dL (74-106); MAGNESIUM 2.2 mg/dL (1.8-2.4); PHOSPHOROUS 3.3 mg/dL (2.5-4.9); POTASSIUM 4.3 mmol/L (3.5-5.1); SGOT/AST 13 U/L (15-37); SGPT/ALT 21 U/L (13-61); SODIUM 138 mmol/L (136-145); TOT PROT 6.9 g/dl (6.4-8.2)
[2019-01-03 09:34] VITALS: BP 114/74; PULSE 98; TEMP 98.4
[2019-01-03] MEDS: predniSONE 10 MG TABLET (UD) PO SCH (09:35)
[2019-01-03] MEDS: RANITIDINE HCL 150 MG TABLET (FP) PO SCH (09:35)
[2019-01-03] MEDS: APIXABAN 5 MG TABLET PO SCH (09:35)
--- NOTE | 2019-01-03 11:28 | PN ---
Progress Note (short form) - Note Progress Note: s: no cp sob palps dizzy o: Vital Signs Period Temp Pulse Resp BP Sys/Almonte Pulse Ox Last 24 Hr 97.5 F-99.0 F 80-125 18-20 113-148/72-90 94-100 Constitutional: Yes: Well Nourished, No Distress Eyes: Yes: Conjunctiva Clear Neck: Yes: Supple Respiratory: Yes: Regular, CTA Bilaterally Gastrointestinal: Yes: Normal Bowel Sounds, Soft Cardiovascular: Yes: Pulse Irregular Heart Sounds: Yes: S1, S2 Edema: No Psychiatric: Yes: Alert, Oriented Current Medications Generic Name Dose Route Start Last Admin Trade Name Freq PRN Reason Stop Dose Admin Acetaminophen 650 mg 01/03/19 00:23 Tylenol - PO Q6H PRN PAIN OR FEVER Apixaban 5 mg 01/02/19 22:00 01/03/19 09:35 Eliquis - PO 5 mg BID PAMELA Administration Diltiazem HCl 240 mg 01/03/19 10:00 01/03/19 09:35 Cardizem Cd - PO 240 mg DAILY PAMELA Administration Metoprolol Succinate 75 mg 01/02/19 22:00 01/03/19 09:35 Toprol Xl - PO 75 mg BID PAMELA Administration Prednisone 10 mg 01/02/19 16:30 01/03/19 09:35 Deltasone - PO 10 mg DAILY PAMELA Administration Ranitidine HCl 150 mg 01/02/19 22:00 01/03/19 09:35 Zantac - PO 150 mg BID PAMELA Administration CBC, BMP 01/03/19 05:30 01/03/19 05:30 holter 10/2018 afib, avg 94 bpm, max 146 hourly mean >100 bpm x7, 6000 PVCs, 3 beat run WCT Echo 03/2018: tds, nl LV function, LA severely dilated, interatrial septal aneurysm, mild MR, ao root 4.0 cm CMR 06/14 nl LV/RV size, not c/w ARVD, mildly decreased EF 47%, + apical noncompaction, + linear subepicardial myocardial enhancement 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, mild post MVP, no L to R shunt INGRID with DCCV 05/14 nl LV, borderline LVSF in rapid AF, dil RV, nl fxn, mild MVP with trace MR CXR: no acute process EKG: afib rate 120 no ischemic changes tele: afib, rate ok Assessment/Plan 72M h/o paroxysmal afib p/w chest pain chest pain - pleuritic pain, worse with taking deep breaths and feels like he can't take a full breath - trop neg x 2, EKG stable, no signs ACS Afib - s/p DCCV 08/2018 initially in sinus, now has been in afib, recent holter 2018 shows AFib with avg rate 94 bpm - rvr here initially - continue diltiazem 240 mg daily - increased metoprolol succinate to 75 mg BID - continue eliquis - rate ok on tele overnight HTN - continue diltiazem and metoprolol cardiac reyes stable
--- NOTE | 2019-01-03 12:21 | DS ---
Physical Exam: SUBJECTIVE: Patient seen and examined OBJECTIVE: Vital Signs Period Temp Pulse Resp BP Sys/Almonte Pulse Ox Last 24 Hr 97.5 F-99.0 F 80-125 18-20 113-148/72-90 94-100 PHYSICAL EXAM GENERAL: Awake, alert, and fully oriented, in no acute distress. NECK: no JVD, or masses. LUNGS: Breath sounds equal, clear to auscultation bilaterally. no crackels . No accessory muscle use. HEART: s1s2 normal, no murmur, irregular ABDOMEN: Soft, nontender, not distended, normoactive bowel sounds, no guarding, no rebound, no masses. MUSCULOSKELETAL: Normal range of motion at all joints. No bony deformities or tenderness. No CVA tenderness. UPPER EXTREMITIES: 2+ pulses, warm, well-perfused. No cyanosis. No clubbing. No peripheral edema. LOWER EXTREMITIES: warm, well-perfused. No calf tenderness. No peripheral edema. NEUROLOGICAL: Normal speech. Normal gait. PSYCHIATRIC: Cooperative. Good eye contact. SKIN: Warm, dry, LABS Laboratory Results - last 24 hr 01/02/19 01/02/19 01/03/19 13:15 13:15 05:30 WBC 13.3 H 8.0 RBC 4.94 4.68 Hgb 15.9 15.8 Hct 46.0 44.5 MCV 93.2 95.1 MCH 32.2 33.6 MCHC 34.6 35.4 RDW 13.8 13.6 Plt Count 195 170 MPV 8.8 8.6 Absolute Neuts (auto) 11.4 H 5.8 Neutrophils % 85.8 H 71.9 Lymphocytes % 7.3 L D 17.9 D Monocytes % 6.2 9.7 Eosinophils % 0.2 D 0.2 Basophils % 0.5 0.3 Nucleated RBC % 0 0 Sodium 136 Potassium 5.1 Chloride 104 Carbon Dioxide 24 Anion Gap 8 BUN 16 Creatinine 1.1 Creat Clearance w eGFR > 60 Random Glucose 90 Calcium 9.3 Phosphorus Magnesium Total Bilirubin 1.5 H AST 38 H ALT 26 Alkaline Phosphatase 91 Creatine Kinase 182 Creatine Kinase Index 1.0 CK-MB (CK-2) 2.0 Troponin I 0.05 Total Protein 8.0 Albumin 4.3 TSH Influenza A (Rapid) Influenza B (Rapid) 01/03/19 01/03/19 05:30 Unknown WBC RBC Hgb Hct MCV MCH MCHC RDW Plt Count MPV Absolute Neuts (auto) Neutrophils % Lymphocytes % Monocytes % Eosinophils % Basophils % Nucleated RBC % Sodium 138 Potassium 4.3 Chloride 107 Carbon Dioxide 26 Anion Gap 5 L BUN 14 Creatinine 1.1 Creat Clearance w eGFR > 60 Random Glucose 99 Calcium 8.3 L Phosphorus 3.3 Magnesium 2.2 Total Bilirubin 2.0 H AST 13 L ALT 21 Alkaline Phosphatase 80 Creatine Kinase Creatine Kinase Index CK-MB (CK-2) Troponin I 0.03 Total Protein 6.9 Albumin 3.6 TSH 2.16 D Influenza A (Rapid) Negative Influenza B (Rapid) Negative CT scan of the chest without intravenous contrast Coronal and sagittal reconstruction images were obtained. Compared to prior chest x-ray dated 2018 Evaluation of the lung demonstrates mild atelectatic changes in lingular segment of the left upper lobe. There are mild bibasal atelectatic changes, left more the right with subsegmental atelectasis/ consolidation the left lower lobe, posteriorly suggestive of pneumonia. Included lower neck appears unremarkable. There is mild cardiomegaly. Dense calcification of the coronary arteries are present. There is also annular calcification of the mitral valve and mild calcification of the aortic valve. No gross enlarged mediastinal or hilar lymph nodes are identified on this noncontrast examination. In included portion of the upper abdomen, gallbladder is slightly over distended. There is suggestion of mild fatty infiltration of the liver. Visualized osseous structures appear intact with mild degenerative changes in the thoracic spine Impression: Atelectatic changes versus minimal infiltrates in lingular segment of the left upper lobe. There are also atelectatic changes with airspace opacities in the left lung base suggestive of pneumonia. Mild atelectatic changes in the right lung base, posteriorly with possible infiltrates. No pneumothorax or pleural effusion are identified, bilaterally. No enlarged mediastinal or hilar lymph nodes are identified. Mild fatty infiltration of the liver. Partially included slightly over distended gallbladder without gross intraluminal stones or wall thickening HOSPITAL COURSE:73 yo M with h/o HTN, paroxysmal A-fib ( on Eliquis ), A- flutter who p/w chest pain. Patient reports acute onset b/l chest pain, radiating to back 7/10 in intensity, now 5/10, gets worse while lying down and gets better with sitting. also increasers with deep breath. Pain was associated with palpitations but no lightheadedness, dizziness, nausea, vomiting, swelling in legs, orthopnea. Denies flu like symptoms, cough, sneezing, runny nose. He shoveled the snow in sunday. Patient denies FERNANDEZ, vision change, palpitations, cough, wheezing, orthopena, PND, leg swelling/pain, N/V, F,C, urinary complaints , hematuria, BPR, abdominal pain, diarrhea, constipation, lightheadedness, weakness, sensory changes. In hospial examination and investigations were done pt found to have afib with rvr for which he got cardiazem 20 mg iv push and his metoprolol succinate was increased to 75 bid and his heart rate decreased to 98 form > 120. for chest pain pt got ct scan without contrast and pt was diagnosed with pleuritic chest pain. His pain got better with prednisone. Pt is feeling good, able to take deep breaths, able to walk without getting short of breath. Now pt is dc home in stable condition on short course of steroid. consults: Dr. sharp senior gamemaster Recommendations You came to hospital because of chest pain and found to have pleuritic chest pain. follow up with your primary care doctor with in one week. Follow up with your senior gamemaster Dr. Becker with in one week. You metoprolol succinate has been increased to 75 mg bid form 50 mg bid We have started you on short course of prednisone for pleuritic chest pain. Take 10 mg on 01/04/19 and 01/05/19. Take 5 mg on 01/06/19 and 01/07/19 Take tylenol for pain. Do not take NSAID like aleve, motrin, naproxen, ibuprofen Take all your other meds as you were taking it before. If you develop any new symptoms or chest pain gets worse or you develop shortness of breath then call your MD or go to hospital. Date of Admission:01/02/19 Date of Discharge: 01/03/19 Minutes to complete discharge: 45 Discharge Summary Reason For Visit: CHEST PAIN AT REST/ATRIAL FIBRILLATION WITH RAPID Current Active Problems Atrial fibrillation with RVR (Acute) Chest pain at rest (Acute) Pleurisy (Acute) Condition: Stable - Instructions Diet, Activity, Other Instructions: You came to hospital because of chest pain and found to have pleuritic chest pain. follow up with your primary care doctor with in one week. Follow up with your senior gamemaster Dr. Becker with in one week. You metoprolol succinate has been increased to 75 mg bid form 50 mg bid We have started you on short course of prednisone for pleuritic chest pain. Take 10 mg on 01/04/19 and 01/05/19. Take 5 mg on 01/06/19 and 01/07/19 Take tylenol for pain. Do not take NSAID like aleve, motrin, naproxen, ibuprofen Take all your other meds as you were taking it before. If you develop any new symptoms or chest pain gets worse or you develop shortness of breath then call your MD or go to hospital. Referrals: John Becker MD [Staff Physician] - 1 Week Vahe Ramirez MD [Primary Care Provider] - 1 Week Disposition: HOME - Home Medications Comprehensive Discharge Medication List: Ambulatory Orders Apixaban [Eliquis -] 5 mg PO BID #60 tablet 04/30/17 Diltiazem Cd [Cardizem Cd -] 240 mg PO DAILY 01/02/19 Acetaminophen [Tylenol .Regular Strength -] 650 mg PO Q6H PRN #20 tablet Metoprolol Succinate [Toprol XL -] 75 mg PO BID #60 tab.sr.24h 01/03/19 predniSONE [Deltasone -] 10 mg PO DAILY #3 tablet 01/03/19 This patient is new to me today: No Emergency Visit: Yes ED Registration Date: 01/02/19 Care time: The patient presented to the Emergency Department on the above date and was hospitalized for further evaluation of their emergent condition. Critical Care patient: No - Discharge Referral Referred to [facility] Med [facility] No
--- NOTE | 2019-01-03 14:28 | EKG ---
Test Reason : Blood Pressure : / mmHG Vent. Rate : 126 BPM Atrial Rate : 092 BPM P-R Int : 000 ms QRS Dur : 144 ms QT Int : 362 ms P-R-T Axes : 000 -18 -03 degrees QTc Int : 524 ms POOR DATA QUALITY, INTERPRETATION MAY BE ADVERSELY AFFECTED ATRIAL FIBRILLATION WITH RAPID VENTRICULAR RESPONSE PREMATURE VENTRICULAR COMPLEXES RIGHT BUNDLE BRANCH BLOCK SEPTAL INFARCT , AGE UNDETERMINED ABNORMAL ECG Confirmed by RAYMOND SPARKS MD ([id number]) on 01/03/2019 2:28:19 PM Referred By: Confirmed By:RAYMOND SPARKS MD
== END 2019-01-03 13:26 | disposition home or self-care (01) ==
LOC: JER 12:11 → JERBED 15:32 → J4W 17:18
PROVIDERS: ADMIT Internal Medicine; ATTEND Internal Medicine
PROC: 3E033GC Introduction of Other Therapeutic Substance into Peripheral Vein, Percutaneous Approach (ICD-10-PCS; principal; 2019-01-02)
DX: R07.89 Other chest pain (principal); I48.0 Paroxysmal atrial fibrillation; I48.92 Unspecified atrial flutter; I10 Essential (primary) hypertension; Z79.01 Long term (current) use of anticoagulants; R09.1 Pleurisy; R06.00 Dyspnea, unspecified
CPT/HCPCS: 36415; 71045-TC-FY; 71250-TC; 80053; 82550; 82553; 83735; 84100; 84443; 84484; 85025; 87804; 93005; 93010; 96374; 99285-25; G0378

== ENCOUNTER 2023-02-21 04:30 | Observation (INO) | payer OTHER ==
[2023-02-21] MEDS ORDERED: LIDOCAINE 5% TOPICAL PATCH TP ONE ×2 (04:54→08:00)
[2023-02-21] MEDS ORDERED: morphine CARPU-JECT 4 MG/1 ML DISP.SYRIN IVPUSH ONE (04:54)
[2023-02-21] MEDS ORDERED: ACETAMINOPHEN 1000 MG/100 ML BAG IVPB ONE (04:54)
[2023-02-21] MEDS ORDERED: SODIUM CHLORIDE 0.9% 500 ML INFUS.BAG IV ONE (04:54)
[2023-02-21] MEDS ORDERED: morphine SULFATE 4 MG/ML VIAL ONE (05:02)
[2023-02-21] MEDS ORDERED: LIDOCAINE 5% TOPICAL PATCH ONE ×2 (05:03→08:24)
[2023-02-21] MEDS ORDERED: ACETAMINOPHEN INJECTION 100 ML IVPB ONE (05:03)
[2023-02-21 06:10] LABS: INR 1.2 (0.83-1.09); PROTHROMBIN TIME (PATIENT) 13.9 SEC (9.7-13.0)
[2023-02-21 06:13] LABS: ACTIVATED PTT 35.5 SECONDS (25.2-36.5)
[2023-02-21 06:15] LABS: POTASSIUM 4.6 mmol/L (3.5-5.1)
[2023-02-21 06:17] LABS: ALBUMIN 4.3 g/dl (3.4-5.0)
[2023-02-21 06:21] LABS: CREATININE 1.3 mg/dL (0.55-1.3)
[2023-02-21 06:25] LABS: BILIRUBIN,TOTAL 1.1 mg/dL (0.2-1); TOT PROT 7.8 g/dl (6.4-8.2)
[2023-02-21 06:53] LABS: BASO % 0.4 % (0-2.0); EOS % 0.4 % (0-4.5); HEMATOCRIT 47.3 % (35.4-49); HEMOGLOBIN 16.8 GM/dL (11.7-16.9); LYMPH % 13.1 % (8-40); MCH 33.5 pg (25.7-33.7); MCHC 35.5 g/dl (32.0-35.9); MEAN CELL VOLUME 94.4 fl (80-96); MEAN PLT VOLUME 9.1 fl (7.5-11.1); MONO % 5.1 % (3.8-10.2); PLATELET COUNT 187 10^3/uL (134-434); RBC 5.01 M/mm3 (4.00-5.60); RDW 13.2 % (11.9-15.9); WHITE BLOOD COUNT 10.4 K/mm3 (4.0-10.0)
[2023-02-21] MEDS ORDERED: morphine CARPU-JECT 2 MG/1 ML DISP.SYRIN IVPUSH ONE (08:00)
[2023-02-21] MEDS ORDERED: SODIUM CHLORIDE 1,000 ML IV STA (08:00)
[2023-02-21 08:38] LABS: PH,URINE 5.5 (5.0-8.0); URINE APPEARANCE CLEAR; URINE BILIRUBIN NEGATIVE (NEGATIVE); URINE COLOR DK YELLOW; URINE GLUCOSE (UA) NEGATIVE (NEGATIVE); URINE KETONE NEGATIVE (NEGATIVE); URINE LEUK ESTERASE NEGATIVE (NEGATIVE); URINE NITRITE NEGATIVE (NEGATIVE); URINE PROTEIN TRACE (NEGATIVE)
[2023-02-21] MEDS ORDERED: APIXABAN 5 MG TABLET ONE (11:46)
[2023-02-21] MEDS ORDERED: POLYETHYLENE GLYCOL (HEALTHYLAX) 3350 17 GM PACKET ONE (11:46)
[2023-02-21] MEDS ORDERED: ATORVASTATIN CA 10 MG TABLET (FP) ONE (11:46)
[2023-02-21] MEDS ORDERED: metoPROLOL SUCCINATE 25 MG TAB.SR.24H (FP) PO ONE (11:46)
[2023-02-21] MEDS ORDERED: KETOROLAC TROMETHAMINE 15 MG/ML VIAL ONE ×2 (11:47→16:57)
[2023-02-21] MEDS ORDERED: CYCLOBENZAPRINE HCL 5 MG TABLET ONE ×3 (11:47→13:59)
[2023-02-21] MEDS: KETOROLAC TROMETHAMINE 15 MG/ML VIAL IVPUSH SCH ×3 (11:56→22:48)
[2023-02-21] MEDS: POLYETHYLENE GLYCOL (HEALTHYLAX) 3350 17 GM PACKET PO SCH ×2 (11:56→22:36)
[2023-02-21] MEDS: APIXABAN 5 MG TABLET PO SCH ×2 (11:56→22:35)
[2023-02-21] MEDS: CYCLOBENZAPRINE HCL 5 MG TABLET PO SCH ×3 (11:56→22:36)
[2023-02-21] MEDS: metoPROLOL SUCCINATE 25 MG TAB.SR.24H (FP) PO SCH ×2 (11:57→22:35)
[2023-02-21] MEDS: ATORVASTATIN CA 10 MG TABLET (FP) PO SCH (11:57)
[2023-02-21 12:17] VITALS: BMI 35.2
[2023-02-21] MEDS: LIDOCAINE PATCH REMOVAL MC SCH ×2 (22:36)
[2023-02-22] MEDS: KETOROLAC TROMETHAMINE 15 MG/ML VIAL IVPUSH SCH ×4 (05:05→21:49)
[2023-02-22] MEDS: CYCLOBENZAPRINE HCL 5 MG TABLET PO SCH ×3 (05:05→21:36)
[2023-02-22 07:42] LABS: BASO % 0.5 % (0-2.0); EOS % 1.2 % (0-4.5); HEMATOCRIT 45.8 % (35.4-49); LYMPH % 26.9 % (8-40); MCH 33.2 pg (25.7-33.7); MEAN CELL VOLUME 94.8 fl (80-96); MEAN PLT VOLUME 8.6 fl (7.5-11.1); MONO % 8.3 % (3.8-10.2); NEUT % 63.1 % (42.8-82.8); PLATELET COUNT 193 10^3/uL (134-434); RBC 4.83 M/mm3 (4.00-5.60); RDW 13.7 % (11.9-15.9); WHITE BLOOD COUNT 7.3 K/mm3 (4.0-10.0)
[2023-02-22 08:01] LABS: POTASSIUM 4.2 mmol/L (3.5-5.1)
[2023-02-22 08:23] LABS: ALBUMIN 3.9 g/dl (3.4-5.0); CALCIUM 8.8 mg/dL (8.5-10.1)
[2023-02-22 08:26] LABS: CREATININE 1.1 mg/dL (0.55-1.3); PHOSPHOROUS 3.2 mg/dL (2.5-4.9)
[2023-02-22 08:27] LABS: TOT PROT 7.4 g/dl (6.4-8.2)
[2023-02-22 08:31] LABS: BILIRUBIN,TOTAL 1.7 mg/dL (0.2-1)
[2023-02-22] MEDS: APIXABAN 5 MG TABLET PO SCH ×2 (09:51→21:36)
[2023-02-22] MEDS: ATORVASTATIN CA 10 MG TABLET (FP) PO SCH (09:51)
[2023-02-22] MEDS: POLYETHYLENE GLYCOL (HEALTHYLAX) 3350 17 GM PACKET PO SCH ×2 (09:51→21:36)
[2023-02-22] MEDS: metoPROLOL SUCCINATE 25 MG TAB.SR.24H (FP) PO SCH ×2 (09:52→21:36)
[2023-02-22] MEDS ORDERED: BISACODYL 5 MG TABLET.DR (FP) PO ONE (15:32)
[2023-02-22] MEDS: LIDOCAINE PATCH REMOVAL MC SCH ×2 (21:36→21:37)
[2023-02-22 22:10] VITALS: RESP 18
[2023-02-23] MEDS: CYCLOBENZAPRINE HCL 5 MG TABLET PO SCH ×2 (05:30→13:45)
[2023-02-23] MEDS: KETOROLAC TROMETHAMINE 15 MG/ML VIAL IVPUSH SCH ×2 (05:30→11:19)
[2023-02-23] MEDS: metoPROLOL SUCCINATE 25 MG TAB.SR.24H (FP) PO SCH (10:53)
[2023-02-23] MEDS: POLYETHYLENE GLYCOL (HEALTHYLAX) 3350 17 GM PACKET PO SCH (10:53)
[2023-02-23] MEDS: APIXABAN 5 MG TABLET PO SCH (10:53)
[2023-02-23] MEDS: ATORVASTATIN CA 10 MG TABLET (FP) PO SCH (10:58)
[2023-02-23 13:09] VITALS: BP 127/88; PULSE 76; TEMP 98
[2023-02-23] MEDS ORDERED: ATORVASTATIN CA 10 MG TABLET (FP) PO SCH (22:00)
== END 2023-02-23 13:47 | disposition home or self-care (01) ==
LOC: JER 04:30 → JERBED 10:39 → INTOOBSV 11:09 → UNDOADMOB 11:09 → JERBED 11:09 → J7W 17:25 → JERBED 17:25 → J7W 17:25
PROVIDERS: ADMIT Internal Medicine; ATTEND Internal Medicine
PROC: 3E033NZ Introduction of Analgesics, Hypnotics, Sedatives into Peripheral Vein, Percutaneous Approach (ICD-10-PCS; principal; 2023-02-21)
PROC: 3E0333Z Introduction of Anti-inflammatory into Peripheral Vein, Percutaneous Approach (ICD-10-PCS; 2023-02-21)
DX: I48.91 Unspecified atrial fibrillation (principal); Z79.01 Long term (current) use of anticoagulants; E78.5 Hyperlipidemia, unspecified; E66.8 Other obesity; Z68.35 Body mass index [BMI] 35.0-35.9, adult; I10 Essential (primary) hypertension
CPT/HCPCS: 0241U-QW; 36415; 74176-TC; 80053; 81003; 83735; 84100; 85025; 85610; 85730; 86850; 86900; 86901; 87086; 96361; 96374; 96375; 96376; 97116-GP; 97161-GP; 99285-25; G0378